=== PATIENT | male | born 1955 | race Asian ===

== ENCOUNTER 2017-10-15 04:18 | Outpatient (CLI) | payer OTHER | END 2017-10-15 04:19 | disposition critical access hospital (66) | LOC: EMS 04:18 | PROVIDERS: ATTEND Surgery | DX: R20.0 Anesthesia of skin (principal) | CPT/HCPCS: A0425; A0427 ==

== ENCOUNTER 2017-10-15 04:34 | Observation (INO) | payer OTHER ==
--- NOTE | 2017-10-15 04:42 | ED Physician Documentation ---
History of Present Illness - Stated complaint Stated Complaint: FACIAL,ARM,LEG NUMBNESS - History obtained from History obtained from: Patient (pt arrived by EMS. he reports that at 0330 this AM he was up (he usually works nights) and he got up to go use the restroom and noticed that his left arm and left leg and the left side of his neck felt numb and tingling. No weakness. no headache. He reports that he did have some vison changes that only lasted a short time. he reports that he took his BP at home and the SBP was in the 230's and his heart rate was in the 140's. He does not have hx of HTN. He reports that he called 911 and since then the symptoms have impreved.) Review of Systems Constitutional: denies: Fever, Chills Eyes: denies: Decreased vision, Photophobia Nose: denies: Rhinorrhea / runny nose, Epistaxis, Sinus pressure / pain Throat: denies: Sore throat Cardiac: denies: Chest pain / pressure, Palpitations Respiratory: denies: Dyspnea, Cough GI: denies: Abdominal Pain, Nausea, Vomiting, Constipation, Diarrhea : denies: Dysuria, Frequency Skin: denies: Rash, Lesions Musculoskeletal: denies: Neck pain, Back pain, Joint swelling, Pain with weight bearing Neurologic: reports: Numbness. denies: Generalized weakness, Focal weakness, Difficulty speaking, Near syncope, Syncope, Seizure, Altered mental status, Headache, Head injury, LOC PD PAST MEDICAL HISTORY - Past Medical History Past Medical History: Yes Cardiovascular: Hypertension, Other (BPH) Respiratory: None - Past Surgical History Past Surgical History: No - Present Medications Home Medications: Ambulatory Orders Medication Instructions Recorded Confirmed No Known Home Medications [No 07/06/14 07/06/14 Known Home Medications] - Allergies Allergies/Adverse Reactions: Allergies Allergy/AdvReac Type Severity Reaction Status Date / Time No Known Drug Allergies Allergy Verified 07/06/14 00:55 - Social History Does the pt smoke?: No Smoking Status: Never smoker Does the pt drink ETOH?: No Does the pt have substance abuse?: No - Immunizations Immunizations are current?: Yes - POLST Patient has POLST: No PD ED PE NORMAL - Vitals Vital signs reviewed: Yes - General General: Alert and oriented X 3, No acute distress, Well developed/nourished - HEENT HEENT: Atraumatic, PERRL, Ears normal, Moist mucous membranes, Pharynx benign - Cardiac Cardiac: RRR, No murmur - Respiratory Respiratory: No respiratory distress, Clear bilaterally - Abdomen Abdomen: Soft, Non tender, Non distended - Back Back: No CVA TTP - Derm Derm: Normal color, Warm and dry, No rash - Extremities Extremities: No deformity, No tenderness to palpate, No calf tenderness / cord - Neuro Eye Opening: Spontaneous Motor: Obeys Commands Verbal: Oriented GCS Score: 15 - Psych Psych: Normal mood, Normal affect PD ED PE EXPANDED - Neuro Neuro: Alert and Oriented X 3, Normal motor, Normal Speech, CNII-XII intact, PERRL, Cerebellar nl, Normal gait, Normal finger nose, Normal speech. No: Confused, Disoriented, Normal Sensation (decreased sensation intact to the left UE and left LE and to the left side of the neck to light touch. ), Weakness, Nystagmus, Aphasia, Dysarthria Results - Vitals Vitals: Vital Signs - 24 hr 10/15/17 10/15/17 04:39 06:05 Temperature 37 C Heart Rate 103 H 68 Respiratory 18 13 Rate Blood Pressure 172/125 H 155/103 H O2 Saturation 96 95 Oxygen O2 Source Room air - EKG (time done) 0455 Rate: Rate (enter#) Rhythm: NSR [place]: Normal Intervals: Normal IN, Prolonged QT (515) QRS: Normal Ischemia: Normal ST segments - Labs Labs: Laboratory Tests 10/15/17 10/15/17 10/15/17 05:30 05:30 05:30 WBC 8.4 RBC 5.31 Hgb 16.0 Hct 47.4 MCV 89.2 MCH 30.1 MCHC 33.7 RDW 14.3 Plt Count 258 MPV 7.7 Neut # 6.1 Lymph # 1.5 [place] # 0.6 Eos # 0.1 Baso # 0.0 Absolute Nucleated RBC 0.01 Nucleated RBC % 0.1 PT 10.8 INR 1.0 APTT 29.7 Sodium 141 Potassium 3.0 L Chloride 105 Carbon Dioxide 26 Anion Gap 10.0 BUN 15 Creatinine 1.0 Estimated GFR (MDRD) 75 L Glucose 110 H Calcium 8.9 Total Bilirubin 0.6 AST 42 ALT 67 H Alkaline Phosphatase 111 Total Protein 7.1 Albumin 4.2 Globulin 2.9 Albumin/Globulin Ratio 1.4 Lipase 32 - Rads (name of study) Head CT Radiology: Final report received (No acute abnormality ), EMP read contemporaneously PD MEDICAL DECISION MAKING - ED course Complexity details: reviewed results, re-evaluated patient, considered differential, d/w patient, d/w family, d/w devops consultant ED course: pt with BP in the 150's SBP and HR in the 90's. has a great improvement in his symptoms. normal head CT. Pt given ASA in the ER. no indication for TPA secondary to the improving symptoms. Discussed case with the pt and admitting provider. will admit for further work up of a TIA. Departure - Departure Disposition: ED Place in Observation Clinical Impression: TIA (transient ischemic attack), Hypotension Condition: Stable
--- NOTE | 2017-10-15 05:10 | CT Report ---
EXAM: CT HEAD EXAM DATE: 10/15/2017 04:53 AM. CLINICAL HISTORY: Left sided weakness. COMPARISON: None. TECHNIQUE: Multiaxial CT images were obtained from the foramen magnum to the vertex. Reformats: Coron al. IV contrast: None. In accordance with CT protocol optimization, one or more of the following dose reduction techniques w ere utilized for this exam: automated exposure control, adjustment of mA and/or KV based on patient s ize, or use of iterative reconstructive technique. FINDINGS: Parenchyma: No intraparenchymal hemorrhage. No evidence of mass, midline shift, or CT findings of inf arction. Triplett-white differentiation is distinct. Moderately extensive nonspecific white matter hypode nsity, somewhat prominent for age. Extraaxial Spaces: Normal for age. No subdural or epidural collections identified. Ventricles: Normal in size and position. Sinuses and Orbits: Imaged paranasal sinuses, orbits, and mastoids show no significant abnormality. Bones: No evidence of fracture or calvarial defect. Other: None. IMPRESSION: No acute or focal intracranial abnormality. [facility] Referring Provider Line: [phone] SITE ID: [id number]
[2017-10-15 05:39] LABS: BASOPHILS % (AUTO) 0.4 %; EOSINOPHILS # (AUTO) 0.1 10^3/uL (0.0-0.7); EOSINOPHILS % (AUTO) 1.7 %; LYMPHOCYTES # (AUTO) 1.5 10^3/uL (1.5-3.5); MEAN CORPUSCULAR HEMOGLOBIN 30.1 pg (27.0-31.0); MEAN CORPUSCULAR HGB CONC 33.7 g/dL (32.0-36.0); MEAN CORPUSCULAR VOLUME 89.2 fL (80.0-94.0); MEAN PLATELET VOLUME 7.7 fL (7.4-11.4); MONOCYTES # (AUTO) 0.6 10^3/uL (0.0-1.0); MONOCYTES % (AUTO) 7.4 %; NEUTROPHILS # (AUTO) 6.1 10^3/uL (1.5-6.6); NEUTROPHILS % (AUTO) 72.5 %; PLT - PLATELET COUNT 258 10^3/uL (130-450); RED BLOOD COUNT 5.31 10^6/uL (4.70-6.10); RED CELL DISTRIBUTION WIDTH 14.3 % (12.0-15.0); WHITE BLOOD COUNT 8.4 x10^3/uL (4.8-10.8)
[2017-10-15 05:42] LABS: PT - PROTHROMBIN TIME 10.8 secs (9.9-12.6)
[2017-10-15 05:50] LABS: ALBUMIN 4.2 g/dL (3.2-5.5); ALBUMIN/GLOBULIN RATIO 1.4 (1.0-2.2); BILIRUBIN,TOTAL 0.6 mg/dL (0.2-1.0); CALCIUM 8.9 mg/dL (8.5-10.3); TOTAL PROTEIN 7.1 g/dL (6.7-8.2)
[2017-10-15] MEDS ORDERED: ASPIRIN 325 MG TABLET PO STA (06:15)
[2017-10-15] MEDS ORDERED: ACETAMINOPHEN 325 MG TABLET PO PRN (06:21)
[2017-10-15] MEDS ORDERED: HYDROcod/ACETAM 5/325 MG TABLET PO PRN (06:21)
[2017-10-15] MEDS ORDERED: SODIUM CHLORIDE FLUSH 0.9% 10 ML SYRINGE IVP PRN (06:21)
[2017-10-15] MEDS ORDERED: LABETALOL 20 MG/4 ML SYRINGE IVP PRN (06:24)
[2017-10-15] MEDS ORDERED: IOPAMIDOL-300 100 ML VIAL ONE ×2 (06:56→07:47)
[2017-10-15] MEDS ORDERED: IOPAMIDOL-300 100 ML VIAL IVP ONE (08:09)
[2017-10-15] MEDS ORDERED: POTASSIUM CHLORIDE 20 MEQ TABLET PO SCH (09:00)
[2017-10-15] MEDS ORDERED: METOPROLOL 5 MG/5 ML VIAL IVP ONE (09:17)
--- NOTE | 2017-10-15 09:24 | PROVIDER PROGRESS NOTE ---
Subjective - Prog Note Date Prog Note Date: 10/15/17 Prog Note Time: 09:21 - Subjective Pt reports feeling: No change Subjective: Tina complains of incontinence and mild facial numbness that comes and goes. Objective - Vital Signs/Intake & Output Reviewed Vital Signs: Yes Vital Signs: Vital Signs x48h Temp Pulse Pulse Resp BP BP Pulse Ox 10/15/17 08:00 36.9 C 77 19 176/111 H 100 10/15/17 07:14 36.9 C 98 18 196/101 H 100 10/15/17 06:42 91 20 186/111 H 96 Intake & Output: Intake & Output 10/12/17 10/13/17 10/14/17 10/15/17 23:59 23:59 23:59 23:59 Intake Total 360 Balance 360 - Objective General Appearance: positive: No acute distress, Alert, Anxious Eyes Bilateral: positive: Normal inspection, PERRL ENT: positive: ENT inspection nml, Pharynx nml, No signs of dehydration Neck: positive: Nml inspection, Thyroid nml, No JVD, Trachea midline Respiratory: positive: Chest non-tender, No respiratory distress, Other ( crackles, bilateral lobes.) Cardiovascular: positive: Regular rate & rhythm, No gallop, Tachycardia, Systolic murmur Peripheral Pulses: 2+ Radial (R), 2+ Radial (L) Abdomen: positive: Non-tender, No organomegaly, Nml bowel sounds, No distention Back: positive: Nml inspection Skin: positive: Color nml, No rash, Warm, Dry Extremities: positive: Non-tender, Full ROM, Nml appearance, No pedal edema Neurologic/Psychiatric: positive: Oriented x3, CN's nml (2-12), Motor nml, Sensation nml, Depressed mood/affect Reflexes: Bicep (R): 4+, Bicep (L): 4+ - Lab Results Fish Bones: 10/15/17 05:30 10/15/17 05:30 - Diagnostic Imaging Diagnostic Imaging Results: positive: Prelim report reviewed Diagnostic Imaging Comments: FINDINGS: CT ANGIOGRAM HEAD: RIGHT: Internal Carotid artery: No evidence of dissection. No evidence of aneurysm along the intracranial ICA. Anterior Cerebral Artery: Patent without significant stenosis, aneurysm, or vascular malformation. 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 A2 and distal branches are primarily supplied from the left A1 segment through a patent A-COM. Middle Cerebral Artery: Patent without significant stenosis, aneurysm, or vascular malformation. Posterior Cerebral Artery: Moderate stenosis is seen in the P2 segment. Proximal and distal to this the WINDOW MACHINE OPERATOR is patent and unremarkable. Posterior Communicating Artery: Not visualized. Vertebral Artery: Patent without significant stenosis. No evidence of dissection. Small in caliber. The PICA is unremarkable. LEFT: Internal Carotid artery: No evidence of dissection. No evidence of aneurysm along the intracranial ICA. Anterior Cerebral Artery: Patent without significant stenosis, aneurysm, or vascular malformation. The A1 segment is dominant. Middle Cerebral Artery: Patent without significant stenosis, aneurysm, or vascular malformation. Posterior Cerebral Artery: Patent without significant stenosis, aneurysm, or vascular malformation. Posterior Communicating Artery: Not visualized. Vertebral Artery: Patent without significant stenosis. No evidence of dissection. Dominant. CENTRAL: Anterior Communicating Artery: Patent. No aneurysm. Basilar Artery: Patent without significant stenosis. No aneurysm. DURAL VENOUS SINUSES AND MAJOR CENTRAL VEINS: Not well opacified secondary to timing of study during early arterial phase of contrast administration. IMPRESSION: CTA Head: 1. Moderate stenosis in the P2 segment of the right WINDOW MACHINE OPERATOR. 2. Otherwise unremarkable CT angiogram of the intracranial circulation. No aneurysm. 3. 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 Assessment/Plan - Problem List (1) Acute left-sided weakness Impression: Patient presented to the ED after unresolved left-sided weakness that has been occurring for at least the past few weeks. Plan: TIA work up including, CTA head, MRI head, telemetry monitoring, and echocardiogram due to abnormal EKGs and
--- NOTE | 2017-10-15 10:03 | CT Preliminary Report ---
Exam: CT NECK ANGIO IMPRESSION: 1. There is subtle vertical lucency seen through the mid aspect of the right ICA. This begins at its origin through the bulbar region into the proximal cervical segment. Indistinctness of the vessel wal l is seen suggesting a motion artifact. This internal lucency may be secondary to artifact, although a dissection flap is not excludable. This could be further evaluated with carotid Doppler ultrasound. 2. The left carotid extracranial circulation and bilateral vertebral artery circulation in the neck i s patent and unremarkable. Critical result: Findings are discussed with referring treating nurse practitioner on 10/15/2017 at 1 000 hrs. [facility] SITE ID: [id number]
--- NOTE | 2017-10-15 10:08 | CT Preliminary Report ---
Exam: CT HEAD ANGIO IMPRESSION: CTA Head: 1. Moderate stenosis in the P2 segment of the right SPARE FIXER. 2. Otherwise unremarkable CT angiogram of the intracranial circulation. No aneurysm. 3. 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 [facility] SITE ID: [id number]
--- NOTE | 2017-10-15 10:15 | CT Report ---
EXAM: CT ANGIOGRAM NECK EXAM DATE: 10/15/2017 08:08 AM. CLINICAL HISTORY: Left body transient ischemic attack. COMPARISON: CT scan and CT angiogram of the head 10/15/2017. TECHNIQUE: Routine axial helical imaging was performed from the skull base through the aortic arch. I V Contrast: 80 mL Isovue 300. Reconstructions: Routine multiplanar 3D MIP reconstructions. Evaluation of arterial stenosis is based on a NASCET method of measurement. In accordance with CT protocol optimization, one or more of the following dose reduction techniques w ere utilized for this exam: automated exposure control, adjustment of mA and/or KV based on patient s ize, or use of iterative reconstructive technique. FINDINGS: The partially visualized aortic arch is unremarkable. Normal three-vessel branching is seen. The grea t vessels off the arch are patent and unremarkable. Right Carotid: (Note mild motion artifact distorts the carotid bifurcation as well as the proximal an d mid cervical ICA/ECA. No similar involvement is seen in the left carotid system. This may be second ciara to pulsation.) The CCA is patent and unremarkable. There is a subtle sagittally-oriented vertical lucency seen through the ICA. This involves the origin, carotid bulb, as well as proximal cervical s egment. This is at site of greatest motion artifact. It is unclear whether this is secondary to motio n artifact or a vertically-oriented dissection flap. No pseudoaneurysm. No significant stenosis. Note the right ICA is smaller in caliber than the left. The ECA is patent and unremarkable. Left Carotid: The common carotid, internal carotid, and external carotid arteries are widely patent. No dissection, significant atherosclerotic plaque, or calcification identified. Vertebrals: The vertebrobasilar system shows no stenoses. Note the left vertebral artery is larger in caliber than the right. Intracranial Circulation: (See report of CT angiogram of the head performed at the same time). Other: The visualized lung apices are clear. Muscle and fascial planes of the neck are unremarkable. Spondylosis is noted in the mid and lower cervical spine. Degenerative disk and uncovertebral change is seen at C4-C5 and C5-C6. Mild to moderate foraminal stenosis. IMPRESSION: 1. There is subtle vertical lucency seen through the mid aspect of the right ICA. This begins at its origin through the bulbar region into the proximal cervical segment. Indistinctness of the vessel wal l is seen suggesting motion artifact. This internal lucency may be secondary to artifact, although a dissection flap is not excludable. This could be further evaluated with carotid Doppler ultrasound. 2. The left carotid extracranial circulation and bilateral vertebral artery circulation in the neck i s patent and unremarkable. Critical result: Findings are discussed with referring treating nurse practitioner on 10/15/2017 at 1 000 hrs. [facility] Referring Provider Line: [phone] SITE ID: [id number]
--- NOTE | 2017-10-15 10:15 | CT Report ---
EXAM: CT ANGIOGRAM HEAD. EXAM DATE: 10/15/2017 08:04 AM CLINICAL HISTORY: Left body TIA. COMPARISON: CT scan of the head without contrast 10/15/2017. CT angiogram of the neck 10/15/2017. TECHNIQUE: 1. CT Angiogram: Using a multidetector scanner, high-resolution axial images were acquired from the s kull base through vertex following rapid infusion of intravenous contrast. Reformats: Multiplanar MIP reformats were reconstructed. Nascet criteria used for stenosis measurement. IV Contrast: 80 cc Isovue 300. In accordance with CT protocol optimization, one or more of the following dose reduction techniques w ere utilized for this exam: automated exposure control, adjustment of mA and/or KV based on patient s ize, or use of iterative reconstructive technique. FINDINGS: CT ANGIOGRAM HEAD: RIGHT: Internal Carotid artery: No evidence of dissection. No evidence of aneurysm along the intracranial IC A. Anterior Cerebral Artery: Patent without significant stenosis, aneurysm, or vascular malformation. No te is made of moderate hypoplasia of the A1 segment. A2 and distal branches are primarily supplied fr om the left A1 segment through a patent A-COM. Middle Cerebral Artery: Patent without significant stenosis, aneurysm, or vascular malformation. Posterior Cerebral Artery: Moderate stenosis is seen in the P2 segment. Proximal and distal to this t he WATER MANGLE TENDER is patent and unremarkable. Posterior Communicating Artery: Not visualized. Vertebral Artery: Patent without significant stenosis. No evidence of dissection. Small in caliber. T he PICA is unremarkable. LEFT: Internal Carotid artery: No evidence of dissection. No evidence of aneurysm along the intracranial IC A. Anterior Cerebral Artery: Patent without significant stenosis, aneurysm, or vascular malformation. Th e A1 segment is dominant. Middle Cerebral Artery: Patent without significant stenosis, aneurysm, or vascular malformation. Posterior Cerebral Artery: Patent without significant stenosis, aneurysm, or vascular malformation. Posterior Communicating Artery: Not visualized. Vertebral Artery: Patent without significant stenosis. No evidence of dissection. Dominant. CENTRAL: Anterior Communicating Artery: Patent. No aneurysm. Basilar Artery: Patent without significant stenosis. No aneurysm. DURAL VENOUS SINUSES AND MAJOR CENTRAL VEINS: Not well opacified secondary to timing of study during early arterial phase of contrast administration. IMPRESSION: CTA Head: 1. Moderate stenosis in the P2 segment of the right WATER MANGLE TENDER. 2. Otherwise unremarkable CT angiogram of the intracranial circulation. No aneurysm. 3. 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 [facility] Referring Provider Line: [phone] SITE ID: [id number]
[2017-10-15] MEDS: ATORVASTATIN 40 MG TABLET PO SCH ×2 (10:19→21:06)
[2017-10-15] MEDS: POLYETHYLENE GLYCOL 3350 17 GM PACKET PO SCH (10:27)
[2017-10-15] MEDS ORDERED: ALPRAZolam 0.25 MG TABLET PO SCH (10:30)
--- NOTE | 2017-10-15 10:44 | HISTORY & PHYSICAL EXAMINATION ---
Chief Complaint - Chief Complaint Chief Complaint: left facial numbness. History of Present Illness - Admitted From Admitted From:: ED - History Obtained From Records Reviewed: yes History obtained from: patient, chart review Exam Limitations: none - History of Present Illness HPI Comment/Other: Tina Wilson is a well-appearing 62-year old male with a past medical history of hypertension, BPH and hyperlipidemia, who presented to the ED after he got up to go use the restroom and noticed that his left arm, left leg, left neck and left side of face felt numb and tingling. No weakness or headaches. He reports that he did have some vision changes that only lasted a couple seconds. Prior to this event, a few weeks ago he admits to left sided weakness , facial numbness, palpitations, and increased anxiety. Patient woke up with left facial numbness only to his face that was different than other times. 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 He contributes these presenting symptoms as relating to stress at work. He will be admitted to observation for a TIA work up. History - Past Medical History Cardiovascular: reports: Hypertension, Other Respiratory: reports: None Neuro: reports: None Endocrine/Autoimmune: reports: None GI: reports: None : reports: Benign prostate hypertrophy, Incontinence, Frequency HEENT: reports: None Psych: reports: None Musculoskeletal: reports: None Derm: reports: None - Past Surgical History HEENT: reports: Cataracts - POLST Patient has POLST: No Meds/Allgy - Home Medications Home Medications: Ambulatory Orders Medication Instructions Recorded Confirmed Saw Sapello 1 cap PO DAILY 10/15/17 10/15/17 - Allergies Allergies/Adverse Reactions: Allergies Allergy/AdvReac Type Severity Reaction Status Date / Time No Known Drug Allergies Allergy Verified 07/06/14 00:55 Review of Systems - Constitutional Constitutional: reports: Weakness - Eyes Eyes: reports: Blurred vision, Spots in vision, Corrective lenses, Other ( seeing stars.) - Cardiovascular Cariovascular: reports: Irregular heart rate, Palpitations, Lightheadedness, Syncope, Decr. exercise tolerance (noticed while playing volleyball.) - Genitourinary Genitourinary: reports: Dysuria, Urgency, Incontinence, Nocturia, Other ( elevated PSA, BPH history.) - Integumentary Integumentary: reports: Dryness - Neurological Neurological: reports: Dizziness, Numbness - Psychiatric Psychiatric: reports: Anxiety - All Other Systems All Other Systems: reports: Reviewed and negative Exam - Vital Signs Reviewed Vital Signs: Yes Vital Signs: Vital Signs x48h Temp Pulse Pulse Resp BP BP Pulse Ox 10/15/17 10:38 74 170/93 H 10/15/17 10:33 83 162/117 H 10/15/17 10:20 181/120 H 10/15/17 08:00 36.9 C 77 19 176/111 H 100 10/15/17 07:14 36.9 C 98 18 196/101 H 100 10/15/17 06:42 91 20 186/111 H 96 - Physical Exam General Appearance: positive: No acute distress, Anxious Eyes Bilateral: positive: Normal inspection, PERRL ENT: positive: ENT inspection nml, Pharynx nml, No signs of dehydration Neck: positive: Nml inspection, Thyroid nml, No JVD, Trachea midline Respiratory: positive: Chest non-tender, No respiratory distress, Other ( crackles in lower lobes.) Cardiovascular: positive: No gallop, Irregularly irregular, Tachycardia, Systolic murmur Peripheral Pulses: positive: 2+ Abdomen: positive: Non-tender, No organomegaly, Nml bowel sounds, No distention Back: positive: Nml inspection Skin: positive: Color nml, No rash, Warm, Dry Extremities: positive: Non-tender, Full ROM, Nml appearance, No pedal edema Neurologic/Psychiatric: positive: Oriented x3, CN's nml (2-12), Motor nml, Sensation nml, Depressed mood/affect Reflexes: Bicep (R): 3+ (equal), Bicep (L): 3+ Conclusion/Plan - Problem List (1) Acute left-sided weakness Conclusion/Plan: Patient presented to the ED after he got up to go use the restroom and noticed that his left arm, left leg, left neck and left side of face felt numb and tingling. No weakness or headaches. He reports that he did have some vision changes that only lasted a couple seconds. Prior to this event, a few weeks ago he admits to left sided weakness, facial numbness, palpitations, and increased anxiety. Patient woke up with left facial numbness only to his face that was different than other times. Plan: Monitor and continue work up for TIA. (2) TIA (transient ischemic attack) Conclusion/Plan: Worriesome presentation with resolved symptoms remain suspicious for TIA. CT head that was completed in ED was negative for intracranial abnormality. Plan: Continue work up with MRI later today. (3) Hypertension Conclusion/Plan: According to ED notes patient's blood pressure was as high as 230's at home per patient original report. Patient states that he has been taking his blood pressure at work and notes blood pressures in the 170's systolic at times. Patient states that he has a history of HTN, and decided not to stay on his meds. Plan: Start antihypertensives and monitor blood pressure. Echocardiogram ordered, telemetry monitoring. (4) BPH (benign prostatic hyperplasia) Conclusion/Plan: Patient reports that he has been diagnosed with this and takes saw Managed by Qo OTC for this. Lately, he has been incontinent and had increased frequency, nocturia , but denies hematuria. Plan: UA with cx ordered. Consider medical management. (5) Dysuria Conclusion/Plan: This is likely a symptom of BPH, but concerning as it is coupled with incontinence that is new in the past few weeks. Plan: UA and culture. Provide urinal. Code status: FULL DVT prophylaxis with SCDs, ASA and enoxaparin. - Lab Results Lab results reviewed: Yes Fish Bones: 10/15/17 05:30 10/15/17 05:30 - Diagnostic Imaging Results Diagnostic Imaging Results: positive: Prelim report reviewed, Final report reviewed, Discussed with radiologist Diagnostic Imaging Results Comments: Head CT: (on admission) FINDINGS: Parenchyma: No intraparenchymal hemorrhage. No evidence of mass, midline shift, or CT findings of infarction. Triplett-white differentiation is distinct. Moderately extensive nonspecific white matter hypodensity, somewhat prominent for age. Extraaxial Spaces: Normal for age. No subdural or epidural collections identified. Ventricles: Normal in size and position. Sinuses and Orbits: Imaged paranasal sinuses, orbits, and mastoids show no significant abnormality. Bones: No evidence of fracture or calvarial defect. Other: None. IMPRESSION: No acute or focal intracranial abnormality - EKG Results EKG Interpreted Independently: Yes EKG Comparison: No prior EKG Core Measures - Anticipated LOS I expect patient to be DC'd or transferred within 96 hours.: Yes - DVT/VTE - Prophylaxis VTE/DVT Device ordered at admit?: Yes VTE/DVT Prophylaxis med ordered at admit?: Yes - Stroke - Rehab Assessment Rehab services assessment to be ordered?: No Not Ordered - Medical Reason: Contraindicated - AMI - Statin at Admit Aspirin Prescribed on Admit: Yes
[2017-10-15] MEDS: METOPROLOL SUCCINATE 25 MG TABLET PO SCH ×2 (12:25→21:02)
[2017-10-15] MEDS: PRAZOSIN 1 MG CAPSULE PO SCH ×2 (12:25→21:02)
[2017-10-15] MEDS: SODIUM CHLORIDE FLUSH 0.9% 10 ML SYRINGE IVP SCH ×2 (12:25→16:42)
[2017-10-15] MEDS ORDERED: LISINOPRIL 5 MG TABLET PO SCH (13:00)
[2017-10-15] MEDS ORDERED: LORazepam 2 MG/ML VIAL IVP ONE (14:44)
--- NOTE | 2017-10-15 16:20 | MRI Report ---
EXAM: MRI BRAIN WITHOUT CONTRAST EXAM DATE: 10/15/2017 03:59 PM. CLINICAL HISTORY: History of TIA. Left-sided symptoms. COMPARISON: Prior CT angiogram head and neck performed earlier today 10/15/2017 at 0722 hours. TECHNIQUE: Multiplanar, multisequence T1-weighted and fluid-sensitive MR sequences of the brain were performed. Sequences optimized for routine evaluation. Other: None. IV Contrast: None. Findings: Relevant images are indicated (image number, series number). There is patient motion artifact. 6.8 mm diffusion restriction right thalamus, corresponding low signal ADC, increased signal seen on a xial FLAIR consistent with subacute ischemic stroke. No hemosiderin deposition present in the brain. There is no hemorrhage, mass or midline shift. There is no cortical atrophy and moderate dense scatte red periventricular, peritrigonal white matter disease present. The pituitary, midbrain, cranial cerv ical junction, limited evaluation upper cervical cord negative Impressions: Study partly degraded by motion artifact. 1. Right thalamic 6.8 mm subacute ischemic stroke. No hemorrhage or mass effect. 2. Moderate dense scattered white matter disease most likely related to chronic small vessel ischemic disease, correlate with patient risk factors. 3. Remaining brain, orbits unremarkable. Critical result: Findings discussed immediately with nurse practitioner Maira Forman by phone on 12/08/2016 at 1618 hours [facility] Referring Provider Line: [phone] SITE ID: [id number]
[2017-10-15] MEDS ORDERED: SODIUM CHLORIDE 0.9% 500 ML IV ONE (16:31)
[2017-10-16] MEDS: SODIUM CHLORIDE FLUSH 0.9% 10 ML SYRINGE IVP SCH (05:11)
[2017-10-16 05:21] LABS: BASOPHILS % (AUTO) 0.5 %; EOSINOPHILS # (AUTO) 0.2 10^3/uL (0.0-0.7); EOSINOPHILS % (AUTO) 2.2 %; HGB - HEMOGLOBIN 15.2 g/dL (14.0-18.0); LYMPHOCYTES # (AUTO) 1.9 10^3/uL (1.5-3.5); LYMPHOCYTES % (AUTO) 23.4 %; MEAN CORPUSCULAR HEMOGLOBIN 29.9 pg (27.0-31.0); MEAN CORPUSCULAR HGB CONC 33.4 g/dL (32.0-36.0); MEAN CORPUSCULAR VOLUME 89.5 fL (80.0-94.0); MEAN PLATELET VOLUME 7.7 fL (7.4-11.4); MONOCYTES # (AUTO) 0.8 10^3/uL (0.0-1.0); MONOCYTES % (AUTO) 9.3 %; NEUTROPHILS # (AUTO) 5.2 10^3/uL (1.5-6.6); NEUTROPHILS % (AUTO) 64.6 %; PLT - PLATELET COUNT 249 10^3/uL (130-450); RED BLOOD COUNT 5.08 10^6/uL (4.70-6.10); RED CELL DISTRIBUTION WIDTH 14.2 % (12.0-15.0); WHITE BLOOD COUNT 8.1 x10^3/uL (4.8-10.8)
[2017-10-16 05:39] LABS: ALBUMIN 3.7 g/dL (3.2-5.5); ALBUMIN/GLOBULIN RATIO 1.3 (1.0-2.2); ALKALINE PHOSPHATASE 99 IU/L (42-121); ALT ALANINE AMINOTRANSFERASE 64 IU/L (10-60); AST ASPARTATE AMINOTRANSFERASE 37 IU/L (10-42); BILIRUBIN,TOTAL 0.9 mg/dL (0.2-1.0); BUN - BLOOD UREA NITROGEN 19 mg/dL (6-20); CALCIUM 8.9 mg/dL (8.5-10.3); CARBON DIOXIDE - CO2 25 mmol/L (21-32); CHLORIDE 104 mmol/L (101-111); CHOL/HDL RATIO 5.6 (<5.0); CHOLESTEROL 174 mg/dL; CREATININE 1.1 mg/dL (0.6-1.2); GFR - MDRD 67 (>89); GLUCOSE 121 mg/dL (70-100); HDL CHOLESTEROL 31 mg/dL; LDL CHOLESTEROL,CALCULATED 87 mg/dL; LDL/HDL RATIO 2.8 (<3.6); SODIUM 139 mmol/L (135-145); TOTAL PROTEIN 6.5 g/dL (6.7-8.2); VLDL CHOLESTEROL 56 mg/dL
[2017-10-16 05:41] LABS: BILIRUBIN,URINE NEGATIVE (NEGATIVE); GLUCOSE, URINE (UA) NEGATIVE (NEGATIVE); KETONES,URINE (UA) NEGATIVE (NEGATIVE); LEUKOCYTE ESTERASE, URINE NEGATIVE (NEGATIVE); NITRITE,URINE NEGATIVE (NEGATIVE); OCCULT BLOOD,URINE TRACE-LYSE (NEGATIVE); PROTEIN,URINE 100 mg/dL (NEGATIVE); UROBILINOGEN,URINE 0.2 (NORMAL) E.U./dL (NORMAL)
[2017-10-16 05:52] LABS: CLARITY,URINE CLEAR (CLEAR)
[2017-10-16 05:53] LABS: BACTERIA,URINE None Seen /HPF (None Seen); RBC,URINE 0-5 /HPF (0-5); SQUAMOUS EPITHELIAL CELL,UR NONE SEEN (<= Few)
[2017-10-16 05:54] LABS: CRYSTALS,URINE 6-10 Calcium Oxalate /LPF
[2017-10-16 06:01] LABS: HB2 TOTAL 16.5 g/dL; HEMOGLOBIN A1C 0.67 g/dL; HEMOGLOBIN A1C % 5.9 % (4.6-6.2)
[2017-10-16 06:11] LABS: PSA FREE 0.95 ng/mL (0.16-2.81)
[2017-10-16 06:12] LABS: PSA TOTAL 5.25 ng/mL (0.000-2.000)
[2017-10-16] MEDS ORDERED: POTASSIUM CHLORIDE 20 MEQ TABLET PO ONE (07:10)
--- NOTE | 2017-10-16 07:31 | DISCHARGE SUMMARY ---
Discharge Summary Discharge Date: 10/16/17 Discharging Provider: ABEL Johnson Code Status: Attempt Resuscitation Condition at Discharge: Good Discharge Disposition: 01 Home, Self Care - DIAGNOSES Admission Diagnoses: Acute left-sided weakness (M62.89) TIA (transient ischemic attack) (G45.9) Hypertension (I10) BPH (benign prostatic hyperplasia) (N40.0) Dysuria (R30.0) Discharge Diagnoses with Status of Each Condition: CVA (cerebral vascular accident) (I63.9) -new diagnosis on this hospital stay, now chronic with only one physical disability with left eyebrow slight droop. Acute left-sided weakness (M62.89)- resolved, although patient admits to residual left arm and thigh residual numbness and tingling. Facial numbness "comes and goes". TIA (transient ischemic attack) (G45.9) -ruled out, resolved. Hypertension (I10)-chronic, controlled. Now medically managed. BPH (benign prostatic hyperplasia) (N40.0) -chronic, prazosin prescribed for both urinary problems and blood pressure. Dysuria (R30.0)-ongoing, hope to control with medications. - HPI History of Present Illness: Tina Wilson is a well-appearing 62-year old male with a past medical history of hypertension, BPH and hyperlipidemia, who presented to the ED after he got up to go use the restroom and noticed that his left arm, left leg, left neck and left side of face felt numb and tingling. No weakness or headaches. He reports that he did have some vision changes that only lasted a couple seconds. Prior to this event, a few weeks ago he admits to left sided weakness , facial numbness, palpitations, and increased anxiety. Patient woke up with left facial numbness only to his face that was different than other times. 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 He contributes these presenting symptoms as relating to stress at work. He will be admitted to observation for a TIA work up. - HOSPITAL COURSE Hospital Course: The following issues/diagnoses were addressed in this hospital stay: Acute left-sided weakness: Patient presented to the ED after he got up to go use the restroom and noticed that his left arm, left leg, left neck and left side of face felt numb and tingling. No weakness or headaches. He reports that he did have some vision changes that only lasted a couple seconds. Prior to this event, a few weeks ago he admits to left sided weakness, facial numbness , palpitations, and increased anxiety. Patient woke up with left facial numbness only to his face that was different than other times, and this time with visual disturbances. Patient was monitored overnight for continued work up for TIA/CVA. TIA/CVA: Worrisome presentation with partially resolved symptoms remained suspicious for TIA. CT head that was completed in ED was negative for intracranial abnormality. MRI revealed a ischemic stroke. Care was taken to prevent hypotension and patient was placed in trendelenberg to prevent decreased intracranial pressure from becoming too low. Patient received IV lorazepam electronic device monitor for MRI, and slept immediately following the MRI until the next AM. was present at the time of explanation of MRI results, and when re-visiting the patient the next AM, was again present. Patient was written a work excuse note, until he sees PCP, but encouraged to see a neurologist if his symptoms are troublesome or he feels he cannot perform his job duties. Hypertension: According to ED notes patient's blood pressure was as high as 230 's at home per patient original report. Patient states that he has been taking his blood pressure at work and notes blood pressures in the 170's systolic at times. Patient states that he has a history of HTN, and decided not to stay on his meds. Antihypertensives were initiated, and monitored. Given hypertension and murmur found on exam, Echocardiogram ordered, with continued telemetry monitoring. The echocardiogram revealed hypertensive related heart failure that may improve with blood pressure control and maintaining a physical state. BPH: Patient reports that he has been diagnosed with this and takes saw [facility]. Lately, he has been incontinent and had increased frequency, nocturia, but denies hematuria. A PSA was taken per patient request and revealed an elevated PSA of 5.250, free PSA of 0.950, % free that was low at 18. UA with culture was negative. Patient given lab values and encouraged to follow up with urologist. Patient was prescribed prazosin for urinary incontinence, urgency and frequency and for blood pressure control. Dysuria: This is likely a symptom of BPH, but concerning as it is coupled with incontinence that is new in the past few weeks. Disposition: Patient was noted to have an elevated triglyceride level of 282, so patient prescribed lopid. Total cholesterol was 174, LDL 87, VLDL 56, and HDL was 31. Patient was prescribed a low dose of 10mg statin due to the addition of lopid and the risk of liver damage. Patient had an official PT evaluation, which he passed and was not found to have any residual physical effects. He was told to follow up with PCP, rest at home for the first few days. Patient was transferred via private car home with in stable condition. was present for the entire discharge process. - ALLERGIES Allergies/Adverse Reactions: Allergies Allergy/AdvReac Type Severity Reaction Status Date / Time No Known Drug Allergies Allergy Verified 07/06/14 00:55 - MEDICATIONS Home Medications: Ambulatory Orders Medication Instructions Recorded Confirmed Saw Rice 1 cap PO DAILY 10/15/17 10/15/17 Aspirin [Alireza] 325 mg PO DAILYWM #30 tablet 10/16/17 Atorvastatin [Lipitor] 10 mg PO DAILY #30 tablet 10/16/17 Gemfibrozil [Lopid] 600 mg PO BIDAC #60 tablet 10/16/17 Losartan [Cozaar] 25 mg PO DAILY #30 tablet 10/16/17 Prazosin [Minipress] 1 mg PO QPM #30 capsule 10/16/17 - PHYSICAL EXAM AT DISCHARGE General Appearance: positive: No acute distress, Alert, Anxious (baseline nervousness.) Eyes Bilateral: positive: Normal inspection, PERRL, No scleral icterus, Other ( mild left eyebrow droop, new this AM. Not appreciated upon admission.) ENT: positive: ENT inspection nml, No signs of dehydration, Other (Patient can move both ears bilaterally) Neck: positive: Nml inspection, Thyroid nml, No JVD, Trachea midline Respiratory: positive: Chest non-tender, No respiratory distress, Breath sounds nml Cardiovascular: positive: No gallop, Irregularly irregular, Systolic murmur Peripheral Pulses: positive: 2+ Abdomen: positive: Non-tender, No organomegaly, Nml bowel sounds, No distention Back: positive: Nml inspection Skin: positive: Color nml, No rash, Warm, Dry Extremities: positive: Non-tender, Full ROM, Nml appearance, No pedal edema Neurologic/Psychiatric: positive: Oriented x3, CN's nml (2-12), Motor nml, Sensation nml, Mood/affect nml, Sensory loss (Patient complains of left arm, hand, and some thigh numbness.), Facial droop (very mild left eyebrow droop that was not appreciated on previous exams.), Other Reflexes: Bicep (R): 3+, Bicep (L): 3+ - LABS Result Diagrams: 10/16/17 05:10 10/16/17 05:10 - DIAGNOSTIC IMAGING Diagnostic Imaging Results: Final report reviewed Diagnostic Imaging Results Comments: Head MRI: Findings: Relevant images are indicated (image number, series number) . There is patient motion artifact. 6.8 mm diffusion restriction right thalamus, corresponding low signal ADC, increased signal seen on axial FLAIR consistent with subacute ischemic stroke. No hemosiderin deposition present in the brain. There is no hemorrhage, mass or midline shift. There is no cortical atrophy and moderate dense scattered periventricular, peritrigonal white matter disease present. The pituitary, midbrain, cranial cervical junction, limited evaluation upper cervical cord negative Impressions: Study partly degraded by motion artifact. 1. Right thalamic 6.8 mm subacute ischemic stroke. No hemorrhage or mass effect. 2. Moderate dense scattered white matter disease most likely related to chronic small vessel ischemic disease, correlate with patient risk factors. 3. Remaining brain, orbits unremarkable. Carotid Dopplers: 10/15/17 Normal, no dissection seen. Per written report by reading radiologist. Head CT 10/15/17: FINDINGS: Parenchyma: No intraparenchymal hemorrhage. No evidence of mass, midline shift, or CT findings of infarction. Triplett-white differentiation is distinct. Moderately extensive nonspecific white matter hypodensity, somewhat prominent for age. Extraaxial Spaces: Normal for age. No subdural or epidural collections identified. Ventricles: Normal in size and position. Sinuses and Orbits: Imaged paranasal sinuses, orbits, and mastoids show no significant abnormality. Bones: No evidence of fracture or calvarial defect. Other: None. IMPRESSION: No acute or focal intracranial abnormality. CTA neck 10/15/17: FINDINGS: The partially visualized aortic arch is unremarkable. Normal three-vessel branching is seen. The great vessels off the arch are patent and unremarkable. Right Carotid: (Note mild motion artifact distorts the carotid bifurcation as well as the proximal and mid cervical ICA/ECA. No similar involvement is seen in the left carotid system. This may be secondary to pulsation.) The CCA is patent and unremarkable. There is a subtle sagittally-oriented vertical lucency seen through the ICA. This involves the origin, carotid bulb, as well as proximal cervical segment. This is at site of greatest motion artifact. It is unclear whether this is secondary to motion artifact or a vertically-oriented dissection flap. No pseudoaneurysm. No significant stenosis. Note the right ICA is smaller in caliber than the left. The ECA is patent and unremarkable. Left Carotid: The common carotid, internal carotid, and external carotid arteries are widely patent. No dissection, significant atherosclerotic plaque, or calcification identified. Vertebrals: The vertebrobasilar system shows no stenoses. Note the left vertebral artery is larger in caliber than the right. Intracranial Circulation: (See report of CT angiogram of the head performed at the same time). Other: The visualized lung apices are clear. Muscle and fascial planes of the neck are unremarkable. Spondylosis is noted in the mid and lower cervical spine. Degenerative disk and uncovertebral change is seen at C4-C5 and C5-C6. Mild to moderate foraminal stenosis. IMPRESSION: 1. There is subtle vertical lucency seen through the mid aspect of the right ICA. This begins at its origin through the bulbar region into the proximal cervical segment. Indistinctness of the vessel wall is seen suggesting motion artifact. This internal lucency may be secondary to artifact, although a dissection flap is not excludable. This could be further evaluated with carotid Doppler ultrasound. 2. The left carotid extracranial circulation and bilateral vertebral artery circulation in the neck is patent and unremarkable. CTA head 10/15/17: FINDINGS: CT ANGIOGRAM HEAD: RIGHT: Internal Carotid artery: No evidence of dissection. No evidence of aneurysm along the intracranial ICA. Anterior Cerebral Artery: Patent without significant stenosis, aneurysm, or vascular malformation. 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 A2 and distal branches are primarily supplied from the left A1 segment through a patent A-COM. Middle Cerebral Artery: Patent without significant stenosis, aneurysm, or vascular malformation. Posterior Cerebral Artery: Moderate stenosis is seen in the P2 segment. Proximal and distal to this the SALES HOST is patent and unremarkable. Posterior Communicating Artery: Not visualized. Vertebral Artery: Patent without significant stenosis. No evidence of dissection. Small in caliber. The PICA is unremarkable. LEFT: Internal Carotid artery: No evidence of dissection. No evidence of aneurysm along the intracranial ICA. Anterior Cerebral Artery: Patent without significant stenosis, aneurysm, or vascular malformation. The A1 segment is dominant. Middle Cerebral Artery: Patent without significant stenosis, aneurysm, or vascular malformation. Posterior Cerebral Artery: Patent without significant stenosis, aneurysm, or vascular malformation. Posterior Communicating Artery: Not visualized. Vertebral Artery: Patent without significant stenosis. No evidence of dissection. Dominant. CENTRAL: Anterior Communicating Artery: Patent. No aneurysm. Basilar Artery: Patent without significant stenosis. No aneurysm. DURAL VENOUS SINUSES AND MAJOR CENTRAL VEINS: Not well opacified secondary to timing of study during early arterial phase of contrast administration. IMPRESSION: 1. Moderate stenosis in the P2 segment of the right SALES HOST. 2. Otherwise unremarkable CT angiogram of the intracranial circulation. No aneurysm. 3. 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 Findings: Relevant images are indicated (image number, series number). There is patient motion artifact. 6.8 mm diffusion restriction right thalamus, corresponding low signal ADC, increased signal seen on axial FLAIR consistent with subacute ischemic stroke. No hemosiderin deposition present in the brain. There is no hemorrhage, mass or midline shift. There is no cortical atrophy and moderate dense scattered periventricular, peritrigonal white matter disease present. The pituitary, midbrain, cranial cervical junction, limited evaluation upper cervical cord negative Impressions: Study partly degraded by motion artifact. 1. Right thalamic 6.8 mm subacute ischemic stroke. No hemorrhage or mass effect. 2. Moderate dense scattered white matter disease most likely related to chronic small vessel ischemic disease, correlate with patient risk factors. 3. Remaining brain, orbits unremarkable. Echocardiogram: Moderate concentric LV hypertrophy, EF of 55-60%. Impaired relaxation consistent with Grade I diastolic dysfunction. No regional wall motion abnormalities are seen. Mild RV enlargement. Bubble study was negative for an atrial shunt. - FOLLOW UP Follow Up: An echocardiogram shows you have diastolic dysfunction with an enlarged right ventricle. The most likely cause is from uncontrolled blood pressure. This may improve as your blood pressure becomes more controlled. A CT of your head in the ED showed no evidence of bleeding or ischemia, but a head MRI showed a subacute right ischemic stroke. This explains your left sided weakness. We found that your triglyceride level was quite high, which is the liver's response to high blood glucose. I have prescribed one new medication for this. Your PSA today was 5.2 today, continue to see urology. Due to the confirmation of a stroke, you need to take all medications as prescribed. One of your high blood pressure medications also help with your recent bladder problems. Please stay off work until you follow up with your PCP. Rest when you feel tired. - TIME SPENT Time Spent in Discharge (Minutes): 60
[2017-10-16] MEDS ORDERED: ASPIRIN 325 MG TABLET PO SCH (08:00)
[2017-10-16] MEDS: POLYETHYLENE GLYCOL 3350 17 GM PACKET PO SCH (10:16)
--- NOTE | 2017-10-16 11:13 | Discharge Plan ---
Discharge Plan Disposition: Home, Self Care Condition: Good Prescriptions: Aspirin [Alireza] 325 mg PO DAILYWM #30 tablet Atorvastatin [Lipitor] 10 mg PO DAILY #30 tablet Gemfibrozil [Lopid] 600 mg PO BIDAC #60 tablet Losartan [Cozaar] 25 mg PO DAILY #30 tablet Prazosin [Minipress] 1 mg PO QPM #30 capsule Diet: Cardiac Activity Restrictions: No Restrictions Shower Restrictions: No Driving Restrictions: Yes Weight Bearing: Full Weight Instruction Topics: Metoprolol extended-release tablets, Lisinopril tablets Additional Instructions or Follow Up instructions: An echocardiogram shows you have diastolic dysfunction with an enlarged right ventricle. The most likely cause is from uncontrolled blood pressure. This may improve as your blood pressure becomes more controlled. A CT of your head in the ED showed no evidence of bleeding or ischemia, but a head MRI showed a subacute right ischemic stroke. This explains your left sided weakness. We found that your triglyceride level was quite high, which is the liver's response to high blood glucose. I have prescribed one new medication for this. Your PSA today was 5.2 today, continue to see urology. Due to the confirmation of a stroke, you need to take all medications as prescribed. One of your high blood pressure medications also help with your recent bladder problems. Please stay off work until you follow up with your PCP. Rest when you feel tired. No Smoking: If you smoke, Please STOP! Call for help. Follow-up with: Portillo Corea DO [Primary Care Provider] -
[2017-10-16 11:41] VITALS: BP 144/96
[2017-10-16] MEDS ORDERED: LOSARTAN 50 MG TABLET PO SCH (12:00)
--- NOTE | 2017-10-16 17:45 | Ultrasound Report ---
CAROTID DUPLEX: 10/15/2017 CLINICAL INDICATION: Possible dissection on CT angiogram. TECHNIQUE: Real-time sonographic vascular imaging was performed by the clinical rehabilitation liaison through the carotid arteries utilizing both color-flow and Doppler spectral analysis. Multiple inside technical sales representative static images were saved for review. Vessel PSV cm/sec EDV cm/sec ICA/CCA PSV Degree of Stenosis Plaque Estimate% RCCA Prox 49 -- -- RCCA Dist 62 22 -- RECA 74 -- -- RT BULB 47 15 0.76 [facility] Prox 43 12 0.69 [facility] Mid 41 20 0.66 [facility] Dist 41 19 0.66 RVA 35 -- -- RVA flow direction: Antegrade Vessel PSV cm/sec EDV cm/sec ICA/CCA PSV Degree of Stenosis Plaque Estimate % LCCA Prox 80 -- -- LCCA Dist 55 17 -- LECA 59 -- -- LFT BULB 45 13 0.82 LICA Prox 31 13 0.56 LICA Mid 65 35 1.18 LICA Dist 44 19 0.80 LVA 41 -- -- LVA flow direction: Antegrade Velocity criteria are extrapolated from diameter data as defined by the Society of Radiologists in Ultrasound Consensus Conference Radiology 2003; 229; 340-346. Degree of Stenosis % ICA PSV cm/sec Plaque Estimate % ICA/CCA RSV Ratio ICA EDV cm/sec Normal < 125 None < 2.0 < 40 <50 < 125 <50 < 2.0 < 40 50-69 125-130 >/=50 2.0-4.0 40-100 >/=70 but less than near occlusion > 230 >/=50 > 4.0 > 100 Near occlusion High, low or undetectable Visible lumen Variable Variable Total occlusion Undetectable No detectable lumen Not applicable Not applicable Right: There is no plaquing in the right carotid bifurcation. No dissection is identified. No stenosis is seen. Left: There is no plaquing in the left carotid bifurcation. No stenosis or dissection is seen. The vertebral arteries demonstrate antegrade flow bilaterally. IMPRESSION: No evidence of carotid dissection at the site questioned on the CT angiogram. Normal carotid duplex. TD: 10/15/2017 12:50 [facility]
== END 2017-10-16 12:45 | disposition home or self-care (01) ==
LOC: EDUNIT# → ED 04:34 → OBS 06:21
PROVIDERS: ADMIT Specialist; ATTEND Nurse Practitioner
DX: I63.9 Cerebral infarction, unspecified (principal); R29.810 Facial weakness; I69.354 Hemiplegia and hemiparesis following cerebral infarction affecting left non-dominant side; I11.0 Hypertensive heart disease with heart failure; I50.9 Heart failure, unspecified; N40.1 Benign prostatic hyperplasia with lower urinary tract symptoms; N39.498 Other specified urinary incontinence; R35.0 Frequency of micturition; R35.1 Nocturia; R30.0 Dysuria; R97.20 Elevated prostate specific antigen [PSA]; E78.1 Pure hyperglyceridemia; E78.5 Hyperlipidemia, unspecified; R90.82 White matter disease, unspecified; I66.21 Occlusion and stenosis of right posterior cerebral artery; Z79.899 Other long term (current) drug therapy; T50.906A Underdosing of unspecified drugs, medicaments and biological substances, initial encounter; Z91.128 Patient's intentional underdosing of medication regimen for other reason
CPT/HCPCS: 36415; 70450; 70496; 70498; 70551; 80053; 80061; 81001; 83036; 83690; 84154; 85025; 85610; 85730; 93005; 93306; 93880; 96361; 96374; 96375; 97162; 99217; 99218; 99284; 99285; A9270; G8978; G8979; G8980; J2060; Q9967; 87086

== ENCOUNTER 2017-12-04 04:06 | Emergency (ER) | payer OTHER ==
--- NOTE | 2017-12-04 04:31 | ED Physician Documentation ---
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 He also notice decreased, but not absent, hearing in left ear. He became concerned that his blood pressure was high, based on inpatient stay in September ([facility]) for CVA (at which time he had unusually high blood pressure readings), and he took several measurements of his blood pressure with readings repeatedly in the 190-200 range SBP and 110s- 120s DBP. He denies any new weakness, numbness, denies headache, visual changes. He also notes that the hearing changes have resolved ROLLER TURNER. He was recently on an antibiotic for UTI (does not recall which one, but it was either once or twice a day) with transient improvement in his dysuria and frequency. Review of Systems Constitutional: denies: Fever, Chills, Sweats Eyes: reports: Reviewed and negative Ears: reports: Loss of hearing (decreased hearing left ear, but not complete loss; this has resolved ROLLER TURNER) Cardiac: reports: Reviewed and negative Respiratory: reports: Reviewed and negative GI: reports: Reviewed and negative : reports: Dysuria, Frequency. denies: Hematuria Neurologic: reports: Reviewed and negative PD PAST MEDICAL HISTORY - Past Medical History Past Medical History: Yes Cardiovascular: Hypertension, High cholesterol, Other Respiratory: None Neuro: None Endocrine/Autoimmune: None GI: None : Benign prostate hypertrophy, Incontinence, Frequency HEENT: None Psych: None Musculoskeletal: None Derm: None Other Past Medical History: UTI - Past Surgical History Past Surgical History: Yes HEENT: Cataracts - Present Medications Home Medications: Ambulatory Orders Medication Instructions Recorded Confirmed Aspirin [Alireza] 325 mg PO DAILYWM #30 tablet 10/16/17 Atorvastatin [Lipitor] 10 mg PO DAILY #30 tablet 10/16/17 Gemfibrozil [Lopid] 600 mg PO BIDAC #60 tablet 10/16/17 Losartan [Cozaar] 25 mg PO DAILY #30 tablet 10/16/17 Prazosin [Minipress] 1 mg PO QPM #30 capsule 10/16/17 Cephalexin [Keflex] 500 mg PO QID #39 capsule 12/04/17 - Allergies Allergies/Adverse Reactions: Allergies Allergy/AdvReac Type Severity Reaction Status Date / Time No Known Drug Allergies Allergy Verified 12/04/17 04:14 - Social History Does the pt smoke?: No Smoking Status: Never smoker Does the pt drink ETOH?: No Does the pt have substance abuse?: No - Immunizations Immunizations are current?: Yes - POLST Patient has POLST: No PD ED PE NORMAL - Vitals Vital signs reviewed: Yes - General General: Alert and oriented X 3, No acute distress, Well developed/nourished - HEENT HEENT: PERRL, EOMI - Neck Neck: Supple, no meningeal sign - Cardiac Cardiac: RRR, No murmur - Respiratory Respiratory: No respiratory distress, Clear bilaterally - Abdomen Abdomen: Soft, Non tender, Non distended - Back Back: No CVA TTP - Neuro Neuro: Alert and oriented X 3, architectural modeler 2-12 intact, No motor deficit, No sensory deficit, Normal speech, Other (2+/4 DTR bilateral patella and bicep) Eye Opening: Spontaneous Motor: Obeys Commands Verbal: Oriented GCS Score: 15 Results - Vitals Vitals: Vital Signs - 24 hr 12/04/17 12/04/17 12/04/17 04:15 04:17 04:33 Temperature 36.7 C Heart Rate 93 75 Respiratory 17 12 Rate Blood Pressure 170/118 H 184/119 H 179/93 H O2 Saturation 97 98 12/04/17 12/04/17 12/04/17 05:34 05:46 06:37 Temperature 36.5 C Heart Rate 67 68 68 Respiratory 16 16 16 Rate Blood Pressure 160/97 H 184/100 H 174/104 H O2 Saturation 98 97 100 Oxygen O2 Source [With Activity] Room air O2 Source [Without Activity] Room air O2 Source Room air - Labs Labs: Microbiology 12/04/17 04:33 Urine Culture - Preliminary Urine,Clean Catch CULTURE IN PROGRESS. RESULTS TO FOLLOW. Laboratory Tests 12/04/17 04:33 Urine Color YELLOW Urine Clarity HAZY Urine pH 6.0 Ur Specific [place] 1.020 Urine Protein TRACE Urine Glucose (UA) NEGATIVE Urine Ketones NEGATIVE Urine Occult Blood LARGE H Urine Nitrite NEGATIVE Urine Bilirubin NEGATIVE Urine Urobilinogen 0.2 (NORMAL) Ur Leukocyte Esterase LARGE H Urine RBC 6-10 H Urine WBC >25 H Ur Squamous Epith Cells RARE Squamous Urine Bacteria Many H Ur Microscopic Review INDICATED Urine Culture Comments INDICATED PD MEDICAL DECISION MAKING - ED course Complexity details: reviewed old records, re-evaluated patient, considered differential, d/w patient ED course: patient presents with urinary frequency and dysuria (he used bathroom quite frequently during ED stay, small output each time), and UA c/w UTI. Based on his description of recent antibiotic being either QD or BID, he was likely on either Cipro or Levaquin, and he had transient, modest relief at best; thus I prescribed keflex at this time, advised to seek f/u with urology, which he has been working on with PMD. He also presents with hypertension. H/o hypertension, but the readings in ED are significantly higher than his baseline. Given clonidine PO with slight improvement in BP; however, no signs or symptoms attributable to the elevated readings tonight and he is due to take both his minipress and Cozaar in about two hours, and thus plan is to d/c home and instructed to take both of these medications. He measures his blood pressure regularly at home and exhibits a clear understanding of concerning signs, symptoms, and BP readings that would necessitate return to ED. Departure - Departure Disposition: 01 Home, Self Care Clinical Impression: Hypertension Qualifiers: Hypertension type: unspecified Qualified Code(s): I10 - Essential (primary) hypertension Urinary tract infection Qualifiers: Urinary tract infection type: acute cystitis Hematuria presence: with hematuria Qualified Code(s): N30.01 - Acute cystitis with hematuria Condition: Good Instructions: ED Hypertension Conf Out Of Control, ED UTI Cystitis Male Follow-Up: Portillo Corea DO [Primary Care Provider] - Prescriptions: Cephalexin [Keflex] 500 mg PO QID #39 capsule Comments: You can take pyridium (Azo is the most common brand name of this medication) as directed; it is available [id number] and can help with the discomfort and urinary frequency Discharge Date/Time: 12/04/17 06:56
[2017-12-04 04:49] LABS: BILIRUBIN,URINE NEGATIVE (NEGATIVE); GLUCOSE, URINE (UA) NEGATIVE (NEGATIVE); KETONES,URINE (UA) NEGATIVE (NEGATIVE); LEUKOCYTE ESTERASE, URINE LARGE (NEGATIVE); NITRITE,URINE NEGATIVE (NEGATIVE); OCCULT BLOOD,URINE LARGE (NEGATIVE); PROTEIN,URINE TRACE mg/dL (NEGATIVE); UROBILINOGEN,URINE 0.2 (NORMAL) E.U./dL (NORMAL)
[2017-12-04] MEDS ORDERED: cloNIDine 0.1 MG TABLET PO STA (05:16)
[2017-12-04 05:20] LABS: CLARITY,URINE HAZY (CLEAR)
[2017-12-04 05:21] LABS: BACTERIA,URINE Many /HPF (None Seen); SQUAMOUS EPITHELIAL CELL,UR RARE Squamous (<= Few)
[2017-12-04 06:42] VITALS: BP 174/104
[2017-12-04] MEDS ORDERED: cephALEXin 250 MG CAPSULE PO STA (06:42)
[2017-12-04] MEDS ORDERED: PHENAZOPYRIDINE 100 MG TABLET PO STA (06:42)
== END 2017-12-04 06:56 | disposition home or self-care (01) ==
LOC: ED 04:06
DX: I10 Essential (primary) hypertension (principal); N30.01 Acute cystitis with hematuria
CPT/HCPCS: 81001; 87086; 99284; A9270; 81003; 87077

== ENCOUNTER 2018-08-01 15:21 | Emergency (ER) | payer OTHER ==
[2018-08-01] MEDS ORDERED: cloNIDine 0.1 MG TABLET PO STA (15:49)
--- NOTE | 2018-08-01 15:59 | ED Physician Documentation ---
History of Present Illness - Stated complaint Stated Complaint: HIGH BLOOD PRESSURE - Chief complaint Chief Complaint: General - Additonal information Additional information: hx from pt 63 male known hx HTN had CVA a year ago related to HTN has int numbness to L side every since worse when his BP is high he is on BP meds and in fact had the dose of one doubled 3 weeks ago but he doesn't know his meds or what was doubled and he has some L sided numbness, no weakness had KERR earlier not now some URI sx recently as well but only taking flonase no CP AP his back and legs are sore from playing volleyball and hiking Review of Systems Constitutional: denies: Fever, Chills Cardiac: denies: Chest pain / pressure Respiratory: denies: Dyspnea GI: denies: Abdominal Pain Neurologic: reports: Numbness. denies: Generalized weakness, Focal weakness, Difficulty speaking, Headache (not now) Endocrine: denies: Easy bruising / bleeding Immunocompromised: denies: Immunocompromised PD PAST MEDICAL HISTORY - Past Medical History Cardiovascular: Hypertension, High cholesterol, Other Respiratory: None Endocrine/Autoimmune: None GI: None : Benign prostate hypertrophy, Incontinence, Frequency HEENT: None Psych: None Musculoskeletal: None Derm: None - Past Surgical History Past Surgical History: Yes HEENT: Cataracts - Present Medications Home Medications: Ambulatory Orders Medication Instructions Recorded Confirmed Aspirin [Alireza] 325 mg PO DAILYWM #30 tablet 10/16/17 Atorvastatin [Lipitor] 10 mg PO DAILY #30 tablet 10/16/17 Prazosin [Minipress] 1 mg PO QPM #30 capsule 10/16/17 Fluticasone [Flonase] 1 sprays BRITNEY DAILY 08/01/18 08/01/18 Losartan [Cozaar] 50 mg PO DAILY 08/01/18 Tamsulosin HCl [Flomax] 0.4 mg PO DAILY 08/01/18 08/01/18 - Allergies Allergies/Adverse Reactions: Allergies Allergy/AdvReac Type Severity Reaction Status Date / Time No Known Drug Allergies Allergy Verified 08/01/18 15:33 - Social History Does the pt smoke?: No Smoking Status: Never smoker Does the pt drink ETOH?: No Does the pt have substance abuse?: No - Immunizations Immunizations are current?: Yes - POLST Patient has POLST: No PD ED PE NORMAL - Vitals Vital signs reviewed: Yes - General General: Alert and oriented X 3 - HEENT HEENT: PERRL, EOMI - Neck Neck: Supple, no meningeal sign - Cardiac Cardiac: RRR - Respiratory Respiratory: No respiratory distress, Clear bilaterally - Abdomen Abdomen: Soft, Non tender - Derm Derm: Normal color - Extremities Extremities: No deformity, Normal ROM s pain - Neuro Neuro: Alert and oriented X 3, manager database administration 2-12 intact, No motor deficit. No: No sensory deficit (slightly dec senation to L hand - NIHSS 1) Eye Opening: Spontaneous Motor: Obeys Commands Verbal: Oriented GCS Score: 15 - Psych Psych: Normal mood Results - Vitals Vitals: Vital Signs - 24 hr 08/01/18 15:28 Temperature 36.8 C Heart Rate 97 Respiratory 18 Rate Blood Pressure 205/140 H O2 Saturation 97 Oxygen O2 Source [With Activity] Room air O2 Source [Without Activity] Room air O2 Source Room air - EKG (time done) 1532 Rate: Rate (enter#) (75) Rhythm: NSR [place]: Normal Intervals: Normal OR QRS: LVH (not new) PD MEDICAL DECISION MAKING - ED course ED course: BP better in ED with clonidine no end organ damage identiefied just chrnic microvascular dz and lacuns on CT numbness better pt states numbness waxes and wanes inversely with BP will dc HR 62 and on prazosin - CCB and BBP less ideal will add HCTZ pt needs close fup and perhaps further wup to cause of extreme HTN such as renal artery imaging and wup for pheo Departure - Departure Disposition: 01 Home, Self Care Clinical Impression: Hypertension Qualifiers: Hypertension type: unspecified Qualified Code(s): I10 - Essential (primary) hypertension Condition: Good Instructions: ED Hypertension Conf Out Of Control Follow-Up: Portillo Corea DO [Primary Care Provider] - Comments: Your blood pressure is wildly out of control No new damage was found on your work up today , but the CT scan shows 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 I also suggest you have some more work up to determine if there is a correctable cause of your very high blood pressure - perhaps imaging of your renal arteries and testing for a pheochromocytoma Return if worse
[2018-08-01 16:03] LABS: BASOPHILS % (AUTO) 0.8 %; EOSINOPHILS # (AUTO) 0.2 10^3/uL (0.0-0.7); EOSINOPHILS % (AUTO) 3.7 %; LYMPHOCYTES # (AUTO) 1.8 10^3/uL (1.5-3.5); LYMPHOCYTES % (AUTO) 33.7 %; MEAN CORPUSCULAR HEMOGLOBIN 30.6 pg (27.0-31.0); MEAN CORPUSCULAR HGB CONC 34.1 g/dL (32.0-36.0); MEAN CORPUSCULAR VOLUME 89.6 fL (80.0-94.0); MEAN PLATELET VOLUME 8.2 fL (7.4-11.4); MONOCYTES # (AUTO) 0.5 10^3/uL (0.0-1.0); NEUTROPHILS # (AUTO) 2.9 10^3/uL (1.5-6.6); NEUTROPHILS % (AUTO) 52.8 %; PLT - PLATELET COUNT 232 10^3/uL (130-450); RED BLOOD COUNT 4.91 10^6/uL (4.70-6.10); RED CELL DISTRIBUTION WIDTH 14.1 % (12.0-15.0); WHITE BLOOD COUNT 5.5 x10^3/uL (4.8-10.8)
[2018-08-01 16:09] LABS: CALCIUM 8.3 mg/dL (8.5-10.3)
--- NOTE | 2018-08-01 16:23 | CT Report ---
Reason: high BP L sided numbness Procedure Date: 08/01/2018 Accession Number: [id number] / [id number] Procedure: CT - Head W/O CPT Code: FULL RESULT: EXAM: CT HEAD EXAM DATE: 08/01/2018 04:01 PM. CLINICAL HISTORY: High BP L sided numbness. COMPARISON: NECK ANGIO 10/15/2017 7:52 AM HEAD W/O 10/15/2017 4:50 AM. TECHNIQUE: Multiaxial CT images were obtained from the foramen magnum to the vertex. Reformats: Sagittal and coronal. IV contrast: None. In accordance with CT protocol optimization, one or more of the following dose reduction techniques were utilized for this exam: automated exposure control, adjustment of mA and/or KV based on patient size, or use of iterative reconstructive technique. FINDINGS: Parenchyma: No acute intraparenchymal hemorrhage. No evidence of mass or midline shift. Triplett-white differentiation is distinct. Redemonstrated hypodense changes to the periventricular white matter, likely related to chronic small vessel ischemic disease. Chronic lacunar infarct in the right thalamus. Extraaxial Spaces: No subdural or epidural collections identified. Ventricles: Normal in size and position. Sinuses and Orbits: Imaged paranasal sinuses, orbits, and mastoids show no significant abnormality. Bones: No evidence of fracture or calvarial defect. Other: None. IMPRESSION: No acute intracranial findings. An acute infarct may not be visible by CT. Follow-up examinations recommended as clinically indicated. RADIA
[2018-08-01] MEDS ORDERED: hydroCHLOROthiazide 25 MG TABLET PO STA (17:01)
[2018-08-01 17:11] VITALS: BP 144/98
== END 2018-08-01 18:08 | disposition home or self-care (01) ==
LOC: ED 15:21
DX: I10 Essential (primary) hypertension (principal); E78.00 Pure hypercholesterolemia, unspecified; R94.31 Abnormal electrocardiogram [ECG] [EKG]; R20.0 Anesthesia of skin; Z86.73 Personal history of transient ischemic attack (TIA), and cerebral infarction without residual deficits; Z79.82 Long term (current) use of aspirin
CPT/HCPCS: 36415; 70450; 80048; 84484; 85025; 99283; A9270

== ENCOUNTER 2018-09-18 08:01 | Outpatient (CLI) | payer OTHER | END 2018-09-18 08:02 | disposition home or self-care (01) | LOC: DI 08:01 | PROVIDERS: ATTEND Family Medicine | DX: I10 Essential (primary) hypertension (principal); R00.8 Other abnormalities of heart beat; I51.7 Cardiomegaly; I77.810 Thoracic aortic ectasia | CPT/HCPCS: 93306 ==

== ENCOUNTER 2018-11-07 02:09 | Emergency (ER) | payer BC, OTHER ==
--- NOTE | 2018-11-07 02:30 | ED Physician Documentation ---
History of Present Illness - Stated complaint Stated Complaint: SOA,NUMBNESS,RAPID HEART RATE - Chief complaint Chief Complaint: Neuro - History obtained from History obtained from: Patient - History of Present Illness Timing: Today (tonight) Pain level max: 0 Pain level now: 0 Improved by: nothing Worsened by: no apparent inciting or exacerbating factors - Additonal information Additional information: had ten-minute episode tonight of diaphoresis, dyspnea, stiffness (per patient) of neck. he has had gradually worsening left-sided numbness (extremities and chest) over past 2 months Review of Systems Constitutional: reports: Sweats. denies: Fever, Chills Eyes: reports: Reviewed and negative Cardiac: reports: Reviewed and negative Respiratory: reports: Dyspnea. denies: Cough, Wheezing GI: reports: Reviewed and negative : denies: Dysuria, Frequency Musculoskeletal: reports: Neck pain (stiffness, resolved) Neurologic: reports: Numbness. denies: Generalized weakness, Focal weakness, Headache PD PAST MEDICAL HISTORY - Past Medical History Past Medical History: Yes Cardiovascular: Hypertension, High cholesterol, Other Respiratory: None Neuro: CVA Endocrine/Autoimmune: None GI: None : Benign prostate hypertrophy, Incontinence, Frequency HEENT: None Psych: None Musculoskeletal: None Derm: None - Past Surgical History Past Surgical History: Yes HEENT: Cataracts - Present Medications Home Medications: Ambulatory Orders Medication Instructions Recorded Confirmed Aspirin [Alireza] 325 mg PO DAILYWM #30 tablet 10/16/17 11/07/18 Atorvastatin [Lipitor] 10 mg PO DAILY #30 tablet 10/16/17 11/07/18 Prazosin [Minipress] 1 mg PO QPM #30 capsule 10/16/17 11/07/18 Fluticasone [Flonase] 1 sprays BRITNEY DAILY 08/01/18 11/07/18 Losartan [Cozaar] 50 mg PO DAILY 08/01/18 11/07/18 Tamsulosin HCl [Flomax] 0.4 mg PO DAILY 08/01/18 11/07/18 hydroCHLOROthiazide 25 mg PO DAILY #30 tablet 08/01/18 11/07/18 [Hydrochlorothiazide] Azithromycin [Zithromax] 250 mg PO DAILY #4 tablet 11/07/18 - Allergies Allergies/Adverse Reactions: Allergies Allergy/AdvReac Type Severity Reaction Status Date / Time No Known Drug Allergies Allergy Verified 11/07/18 02:21 - Social History Does the pt smoke?: No Smoking Status: Never smoker Does the pt drink ETOH?: No Does the pt have substance abuse?: No - Immunizations Immunizations are current?: Yes - POLST Patient has POLST: No PD ED PE NORMAL - Vitals Vital signs reviewed: Yes - General General: Alert and oriented X 3, No acute distress, Well developed/nourished - HEENT HEENT: PERRL, EOMI, Moist mucous membranes - Neck Neck: Supple, no meningeal sign - Cardiac Cardiac: RRR, No murmur, No gallop, No rub - Respiratory Respiratory: No respiratory distress, Clear bilaterally - Abdomen Abdomen: Soft, Non tender - Derm Derm: Normal color, Warm and dry - Extremities Extremities: No edema - Neuro Neuro: Alert and oriented X 3, chair and couch maker 2-12 intact, No motor deficit, No sensory deficit, Normal speech Results - Vitals Vitals: Oxygen O2 Source [With Activity] Room air O2 Source [Without Activity] Room air O2 Source Room air - EKG (time done) No standard instances Rate: Rate (enter#) (62) Rhythm: NSR [place]: Normal Intervals: Normal [place] QRS: Normal Ischemia: Non specific changes (V5-V6) Compare to prior EKG: Unchanged from prior EKG (08/01/18) - Labs Labs: Laboratory Tests 11/07/18 11/07/18 11/07/18 02:25 02:25 02:25 WBC 5.5 RBC 4.73 Hgb 14.5 Hct 41.8 L MCV 88.3 MCH 30.5 MCHC 34.6 RDW 14.8 Plt Count 229 MPV 7.7 Neut # (Auto) 3.3 Lymph # (Auto) 1.6 [place] # (Auto) 0.4 Eos # (Auto) 0.2 Baso # (Auto) 0.0 Absolute Nucleated RBC 0.01 Nucleated RBC % 0.1 Sodium 137 Potassium 2.8 L Chloride 102 Carbon Dioxide 27 Anion Gap 8.0 BUN 28 H Creatinine 1.3 H Estimated GFR (MDRD) 55 L Glucose 187 H Calcium 8.4 L Total Bilirubin 0.9 AST 35 ALT 43 Alkaline Phosphatase 98 Troponin I < 0.04 Total Protein 6.5 L Albumin 3.8 Globulin 2.7 Albumin/Globulin Ratio 1.4 Lipase 44 - Rads (name of study) chest xray Radiology: Prelim report reviewed, See rad report PD MEDICAL DECISION MAKING - ED course Complexity details: reviewed results, re-evaluated patient, considered differential, d/w patient, d/w family Departure - Departure Disposition: 01 Home, Self Care Clinical Impression: Hypokalemia, Paresthesia Condition: Good Instructions: ED Potassium Deficiency, ED Paraesthesias Follow-Up: Portillo Corea DO [Primary Care Provider] - Within 1 week Prescriptions: Azithromycin [Zithromax] 250 mg PO DAILY #4 tablet Comments: As we discussed, there is a finding on your chest xray in the upper right lung. It is not clear at this time what is causing this abnormal finding. Because infection (such as pneumonia) is one of the more common explanations for such a finding, you are being prescribed an antibiotic. You will need to follow up with your primary care provider to follow-up for the low potassium as well as the chest xray finding. Discharge Date/Time: 11/07/18 05:51
[2018-11-07 02:35] LABS: BASOPHILS % (AUTO) 0.4 %; EOSINOPHILS # (AUTO) 0.2 10^3/uL (0.0-0.7); EOSINOPHILS % (AUTO) 3.2 %; HGB - HEMOGLOBIN 14.5 g/dL (14.0-18.0); LYMPHOCYTES # (AUTO) 1.6 10^3/uL (1.5-3.5); LYMPHOCYTES % (AUTO) 28.1 %; MEAN CORPUSCULAR HEMOGLOBIN 30.5 pg (27.0-31.0); MEAN CORPUSCULAR HGB CONC 34.6 g/dL (32.0-36.0); MEAN CORPUSCULAR VOLUME 88.3 fL (80.0-94.0); MEAN PLATELET VOLUME 7.7 fL (7.4-11.4); MONOCYTES # (AUTO) 0.4 10^3/uL (0.0-1.0); NEUTROPHILS # (AUTO) 3.3 10^3/uL (1.5-6.6); NEUTROPHILS % (AUTO) 60.3 %; PLT - PLATELET COUNT 229 10^3/uL (130-450); RED BLOOD COUNT 4.73 10^6/uL (4.70-6.10); RED CELL DISTRIBUTION WIDTH 14.8 % (12.0-15.0); WHITE BLOOD COUNT 5.5 x10^3/uL (4.8-10.8)
[2018-11-07 03:13] LABS: ALBUMIN 3.8 g/dL (3.2-5.5); ALBUMIN/GLOBULIN RATIO 1.4 (1.0-2.2); BILIRUBIN,TOTAL 0.9 mg/dL (0.2-1.0); CALCIUM 8.4 mg/dL (8.5-10.3); CREATININE 1.3 mg/dL (0.6-1.2); TOTAL PROTEIN 6.5 g/dL (6.7-8.2)
--- NOTE | 2018-11-07 03:38 | XRAY Report ---
Reason: dyspnea Procedure Date: 11/07/2018 Accession Number: [id number] / [id number] Procedure: XR - Chest 2 View X-Ray CPT Code: 28069 FULL RESULT: EXAM: CHEST RADIOGRAPHY EXAM DATE: 11/07/2018 03:22 AM. CLINICAL HISTORY: Dyspnea. COMPARISON: None. TECHNIQUE: 2 views. FINDINGS: Lungs/Pleura: Small right suprahilar airspace opacity with clear left lung. No pneumothorax or effusion. Mediastinum: Heart and mediastinal contours are unremarkable. Other: None. IMPRESSION: Small right suprahilar airspace opacity, possibly pneumonia. RADIA
[2018-11-07] MEDS ORDERED: POTASSIUM BICARB 25 MEQ TABLET PO STA (04:26)
[2018-11-07] MEDS ORDERED: POTASSIUM CHLOR 10 MEQ/100 ML 10 MEQ/100 ML BAG IV ONE (04:27)
[2018-11-07] MEDS ORDERED: AZITHROMYCIN 250 MG TABLET PO STA (04:27)
[2018-11-07 05:23] VITALS: BP 120/84
== END 2018-11-07 05:51 | disposition home or self-care (01) ==
LOC: ED 02:09
DX: E87.6 Hypokalemia (principal); R20.2 Paresthesia of skin; R91.8 Other nonspecific abnormal finding of lung field; I10 Essential (primary) hypertension; Z79.82 Long term (current) use of aspirin
CPT/HCPCS: 36415; 71046; 80053; 83690; 84484; 85025; 93005; 96365; 99283; 99284; A9270

== ENCOUNTER 2018-11-18 09:13 | Outpatient (CLI) | payer BC ==
--- NOTE | 2018-11-18 12:29 | XRAY Report ---
Reason: RUL PNEUMONIA Procedure Date: 11/18/2018 Accession Number: [id number] / [id number] Procedure: XR - Chest 2 View X-Ray CPT Code: 37962 FULL RESULT: EXAM: CHEST RADIOGRAPHY EXAM DATE: 11/18/2018 09:35 AM. CLINICAL HISTORY: Right upper lobe pneumonia. COMPARISON: Chest 2 view 11/07/2018 3:02 AM. TECHNIQUE: 2 views. FINDINGS: Lungs/Pleura: No focal opacities evident. No pleural effusion. No pneumothorax. Normal volumes. Mediastinum: Heart and mediastinal contours are stable. Other: None. IMPRESSION: No definite lobar consolidation is detected. RADIA
== END 2018-11-18 09:14 | disposition home or self-care (01) ==
LOC: DI 09:13
PROVIDERS: ATTEND Family Medicine
DX: J18.1 Lobar pneumonia, unspecified organism (principal)
CPT/HCPCS: 71046

== ENCOUNTER 2019-02-10 00:28 | Emergency (ER) | payer BC ==
--- NOTE | 2019-02-10 00:41 | ED Physician Documentation ---
PD HPI FOCAL NEURO - Stated complaint Stated Complaint: STROKE LIKE SYMPTOMS - History obtained from History obtained from: Patient - History of Present Illness Timing - onset: Other (see below) Timing - details: Gradual onset, Waxing and waning Time of symptom onset unknown: Time of onset unknown (several days/1 week) Severity of deficit: Mild Weakness: Arm, Hand, Right Numbness: Arm, Hand, Right, Left Associated symptoms: No: Headache, Nausea / vomiting, Seizure, Syncope, Fall, Head injury, Chest pain, Neck pain, Back pain, Fever Baseline status: positive: A&OX3, ambulatory, indep Recently seen: Emergency Dept (T+R 3 months ago (October) for similar symptoms) - Additional information Additional information: c/o LUE paresthesias which have been waxing and waning since early 2017 but worse over past week. He also has had intermittent, gradually worsening RUE paresthesias and weakness x 1 week. Saw PMD earlier today, no testing at that time. Prior to coming to ED, he became particularly concerned with his blood pressure, with readings of 202/118 and 190/127 Review of Systems Constitutional: reports: Reviewed and negative Eyes: reports: Reviewed and negative Ears: reports: Reviewed and negative Cardiac: reports: Reviewed and negative Respiratory: reports: Reviewed and negative GI: reports: Reviewed and negative Musculoskeletal: reports: Reviewed and negative Neurologic: reports: Focal weakness (RUE), Numbness (BUE). denies: Generalized weakness, Difficulty speaking, Confused, Altered mental status, Headache PD PAST MEDICAL HISTORY - Past Medical History Cardiovascular: Hypertension, High cholesterol, Other Respiratory: None Neuro: CVA Endocrine/Autoimmune: None GI: None : Benign prostate hypertrophy, Incontinence, Frequency HEENT: None Psych: None Musculoskeletal: None Derm: None - Past Surgical History Past Surgical History: Yes HEENT: Cataracts - Present Medications Home Medications: Ambulatory Orders Medication Instructions Recorded Confirmed Aspirin [Alireza] 325 mg PO DAILYWM #30 tablet 10/16/17 11/07/18 Atorvastatin [Lipitor] 10 mg PO DAILY #30 tablet 10/16/17 11/07/18 Prazosin [Minipress] 1 mg PO QPM #30 capsule 10/16/17 11/07/18 Fluticasone [Flonase] 1 sprays BRITNEY DAILY 08/01/18 11/07/18 Losartan [Cozaar] 50 mg PO DAILY 08/01/18 11/07/18 Tamsulosin HCl [Flomax] 0.4 mg PO DAILY 08/01/18 11/07/18 hydroCHLOROthiazide 25 mg PO DAILY #30 tablet 08/01/18 11/07/18 [Hydrochlorothiazide] Azithromycin [Zithromax] 250 mg PO DAILY #4 tablet 11/07/18 - Allergies Allergies/Adverse Reactions: Allergies Allergy/AdvReac Type Severity Reaction Status Date / Time No Known Drug Allergies Allergy Verified 02/10/19 00:42 - Social History Does the pt smoke?: No Smoking Status: Never smoker Does the pt drink ETOH?: No Does the pt have substance abuse?: No - Immunizations Immunizations are current?: Yes - POLST Patient has POLST: No PD ED PE NORMAL - Vitals Vital signs reviewed: Yes - General General: Alert and oriented X 3, No acute distress, Well developed/nourished - HEENT HEENT: PERRL, EOMI, Moist mucous membranes - Neck Neck: Supple, no meningeal sign - Cardiac Cardiac: RRR, No murmur, No gallop, No rub - Respiratory Respiratory: No respiratory distress, Clear bilaterally - Abdomen Abdomen: Soft, Non tender - Derm Derm: Normal color, Warm and dry - Extremities Extremities: Normal ROM s pain, No edema - Neuro Neuro: Alert and oriented X 3, 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 2-12 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, No motor deficit, Normal speech Eye Opening: Spontaneous Motor: Obeys Commands Verbal: Oriented GCS Score: 15 NIHSS - Level of Consciousness Level of consciousness: (0) Alert, Keenly responsive LOC Questions: (0) Answers both Q's correct LOC Commands: (0) Performs both correctly - Gaze Best Gaze: (0) Normal - Visual Visual: (0) No loss - Facial Palsy Facial Palsy: (0) Normal, symmetrical movement - Motor Arms (both separate) Motor Arm (right): (0) No drift Motor Arm (left): (0) No drift - Motor Legs (both separate) Motor Leg (right): (0) No drift Motor Leg (left): (0) No drift - Limb Ataxia Limb Ataxia: (0) Absent - Sensory Sensory: (1) [id number] loss (mild LUE decreased LTS) - Best Language Best Language: (0) No aphasia - Dysarthria Dysarthria: (0) Normal - Extinction and Inattention (formally neg Extinction and inattention: (0) No abnormality - Total Score/Results Total Score/Result: 1 Results - Vitals Vitals: Oxygen O2 Source [With Activity] Room air O2 Source [Without Activity] Room air O2 Source Room air - EKG (time done) No standard instances Rate: Rate (enter#) (60) Rhythm: NSR [place]: Normal Intervals: Normal [place] QRS: Normal Ischemia: Normal ST segments - Labs Labs: Laboratory Tests 02/10/19 02/10/19 02/10/19 00:45 00:45 00:45 WBC 7.1 RBC 4.82 Hgb 14.6 Hct 43.6 MCV 90.5 MCH 30.4 MCHC 33.6 RDW 14.3 Plt Count 245 MPV 8.5 Neut # (Auto) 4.3 Lymph # (Auto) 2.1 [place] # (Auto) 0.4 Eos # (Auto) 0.3 Baso # (Auto) 0.0 Absolute Nucleated RBC 0.00 Nucleated RBC % 0.0 Sodium 139 Potassium 3.3 L Chloride 103 Carbon Dioxide 26 Anion Gap 10.0 BUN 32 H Creatinine 1.5 H Estimated GFR (MDRD) 47 L Glucose 139 H Calcium 8.9 Troponin I < 0.04 - Rads (name of study) CT head Radiology: Prelim report reviewed, See rad report PD MEDICAL DECISION MAKING - ED course Complexity details: reviewed old records, reviewed results, re-evaluated patient, considered differential, d/w patient Departure - Departure Disposition: 01 Home, Self Care Clinical Impression: Paresthesia Condition: Good Instructions: ED Insufficiency Renal, ED Paraesthesias Follow-Up: Eddi Gilmore PA-C [Primary Care Provider] - Discharge Date/Time: 02/10/19 03:30
[2019-02-10 01:17] LABS: BASOPHILS % (AUTO) 0.5 %; EOSINOPHILS # (AUTO) 0.3 10^3/uL (0.0-0.7); EOSINOPHILS % (AUTO) 3.6 %; HGB - HEMOGLOBIN 14.6 g/dL (14.0-18.0); LYMPHOCYTES # (AUTO) 2.1 10^3/uL (1.5-3.5); LYMPHOCYTES % (AUTO) 29.5 %; MEAN CORPUSCULAR HEMOGLOBIN 30.4 pg (27.0-31.0); MEAN CORPUSCULAR HGB CONC 33.6 g/dL (32.0-36.0); MEAN CORPUSCULAR VOLUME 90.5 fL (80.0-94.0); MEAN PLATELET VOLUME 8.5 fL (7.4-11.4); MONOCYTES # (AUTO) 0.4 10^3/uL (0.0-1.0); MONOCYTES % (AUTO) 5.9 %; NEUTROPHILS # (AUTO) 4.3 10^3/uL (1.5-6.6); NEUTROPHILS % (AUTO) 60.5 %; PLT - PLATELET COUNT 245 10^3/uL (130-450); RED BLOOD COUNT 4.82 10^6/uL (4.70-6.10); RED CELL DISTRIBUTION WIDTH 14.3 % (12.0-15.0); WHITE BLOOD COUNT 7.1 x10^3/uL (4.8-10.8)
[2019-02-10 01:20] LABS: CALCIUM 8.9 mg/dL (8.5-10.3); CREATININE 1.5 mg/dL (0.6-1.2)
--- NOTE | 2019-02-10 01:27 | CT Report ---
Reason: numbness/paresthesias Procedure Date: 02/10/2019 Accession Number: [id number] / [id number] Procedure: CT - Head W/O Stroke Protocol CPT Code: FULL RESULT: EXAM: CT HEAD EXAM DATE: 02/10/2019 01:17 AM. CLINICAL HISTORY: Numbness/paresthesias. COMPARISON: None. TECHNIQUE: Multiaxial CT images were obtained from the foramen magnum to the vertex. Reformats: Sagittal and coronal. IV contrast: None. In accordance with CT protocol optimization, one or more of the following dose reduction techniques were utilized for this exam: automated exposure control, adjustment of mA and/or KV based on patient size, or use of iterative reconstructive technique. FINDINGS: Parenchyma: No intraparenchymal hemorrhage. No evidence of mass, midline shift, or CT findings of acute infarction. Triplett-white differentiation is distinct. Moderate nonspecific white matter hypodensity, likely small vessel ischemic. Extraaxial Spaces: Normal for age. No subdural or epidural collections identified. Ventricles: Normal in size and position. Sinuses and Orbits: Imaged paranasal sinuses, orbits, and mastoids show no significant abnormality. Bones: No evidence of fracture or calvarial defect. Other: None. IMPRESSION: No acute intracranial process. ASPECTS 10 bilaterally RADIA The critical test notification system was initiated by Dr. Efren Slater at 01:23 AM on 02/10/2019. The above critical test findings were discussed with Yovany Fulton by Dr. Efren Slater at 01:25 AM on 02/10/2019.
[2019-02-10 03:03] VITALS: BP 131/88
== END 2019-02-10 03:30 | disposition home or self-care (01) ==
LOC: ED 00:28
DX: R20.2 Paresthesia of skin (principal); I10 Essential (primary) hypertension; E78.00 Pure hypercholesterolemia, unspecified; Z86.73 Personal history of transient ischemic attack (TIA), and cerebral infarction without residual deficits; Z79.82 Long term (current) use of aspirin
CPT/HCPCS: 36415; 70450; 80048; 84484; 85025; 93005; 99283; 99284

== ENCOUNTER 2019-02-15 08:00 | Outpatient (CLI) | payer BC ==
[2019-02-15 13:02] LABS: HB2 TOTAL 16.4 g/dL; HEMOGLOBIN A1C 0.62 g/dL; HEMOGLOBIN A1C % 5.6 % (4.6-6.2)
[2019-02-15 13:07] LABS: BUN - BLOOD UREA NITROGEN 23 mg/dL (6-20); CARBON DIOXIDE - CO2 30 mmol/L (21-32); CHLORIDE 100 mmol/L (101-111); CHOL/HDL RATIO 3.8 (<5.0); CHOLESTEROL 148 mg/dL; CREATININE 1.2 mg/dL (0.6-1.2); GFR - MDRD 61 (>89); GLUCOSE 94 mg/dL (70-100); HDL CHOLESTEROL 39 mg/dL; LDL CHOLESTEROL,CALCULATED 81 mg/dL; LDL/HDL RATIO 2.1 (<3.6); SODIUM 139 mmol/L (135-145); VLDL CHOLESTEROL 28 mg/dL
== END 2019-02-15 23:59 | disposition home or self-care (01) ==
LOC: LAB.N 08:00
PROVIDERS: ATTEND Physician Assistant Medical
DX: R73.9 Hyperglycemia, unspecified (principal); E78.1 Pure hyperglyceridemia; E87.6 Hypokalemia
CPT/HCPCS: 36415; 80048; 80061; 83036; 83721; 84443

== ENCOUNTER 2019-03-17 08:00 | Outpatient (CLI) | payer BC ==
[2019-03-17 13:18] LABS: CALCIUM 8.9 mg/dL (8.5-10.3); CREATININE 1.1 mg/dL (0.6-1.2)
== END 2019-03-17 23:59 | disposition home or self-care (01) ==
LOC: LAB.N 08:00
PROVIDERS: ATTEND Physician Assistant Medical
DX: E87.6 Hypokalemia (principal)
CPT/HCPCS: 36415; 80048

== ENCOUNTER 2019-09-28 08:39 | Outpatient (CLI) | payer BC ==
[2019-09-28 12:26] LABS: CALCIUM 8.7 mg/dL (8.5-10.3)
[2019-09-28 12:49] LABS: ALBUMIN 4.1 g/dL (3.2-5.5); ALBUMIN/GLOBULIN RATIO 1.6 (1.0-2.2); BILIRUBIN,TOTAL 0.3 mg/dL (0.2-1.0); CREATININE 1.2 mg/dL (0.6-1.2); TOTAL PROTEIN 6.7 g/dL (6.7-8.2)
== END 2019-09-28 23:59 | disposition home or self-care (01) ==
LOC: LAB.N 08:39
PROVIDERS: ATTEND Physician Assistant Medical
DX: E87.6 Hypokalemia (principal); N40.1 Benign prostatic hyperplasia with lower urinary tract symptoms; N13.8 Other obstructive and reflux uropathy
CPT/HCPCS: 36415; 80053

== ENCOUNTER 2019-12-22 05:05 | Day surgery (SDC) | payer BC ==
[2019-12-22] MEDS ORDERED: KETOROLAC 30 MG/ML VIAL IVP STA (05:34)
[2019-12-22] MEDS ORDERED: ONDANSETRON 4 MG/2 ML VIAL IVP STA (05:34)
--- NOTE | 2019-12-22 05:37 | ED Physician Documentation ---
PD HPI ABD PAIN - Stated complaint Stated Complaint: AB PX - Chief complaint Chief Complaint: Abd Pain - History obtained from History obtained from: Patient - History of Present Illness Timing - onset: Enter time (299), Today Timing - duration: Hours Timing - details: Abrupt onset, Still present Quality: Sharp, Pain Location: RUQ Radiation: Right flank Improved by: Other (nothing) Worsened by: Other (nothing) Associated symptoms: Nausea. No: Vomiting, Diarrhea, Constipation Similar symptoms before: Has not had sx before Recently seen: Not recently seen - Additional information Additional information: 64-year-old male with history of hypertension and TIA has developed acute right flank pain at about 3 AM this morning. He states he feels the pain is radiating around to his front and he is worried about appendicitis. He feels that he has some tenderness in the right lower quadrant. He denies any change in his pain with ambulation or moving about. He denies any fever he has had some nausea. He has not had this symptom previously. Review of Systems Constitutional: denies: Fever, Chills Eyes: denies: Decreased vision Ears: denies: Ear pain Nose: denies: Rhinorrhea / runny nose, Congestion Throat: denies: Sore throat Cardiac: denies: Chest pain / pressure, Palpitations Respiratory: denies: Dyspnea, Cough GI: reports: Abdominal Pain, Nausea. denies: Vomiting, Constipation, Diarrhea : denies: Dysuria, Frequency Skin: denies: Rash Musculoskeletal: reports: Back pain. denies: Neck pain, Extremity pain PD PAST MEDICAL HISTORY - Past Medical History Cardiovascular: Hypertension, High cholesterol, Other Respiratory: None Neuro: CVA Endocrine/Autoimmune: None GI: None : Benign prostate hypertrophy, Incontinence, Frequency HEENT: None Psych: None Musculoskeletal: None Derm: None - Past Surgical History Past Surgical History: Yes HEENT: Cataracts - Present Medications Home Medications: Ambulatory Orders Medication Instructions Recorded Confirmed Aspirin [Alireza] 325 mg PO DAILYWM #30 tablet 10/16/17 12/22/19 Atorvastatin [Lipitor] 10 mg PO DAILY #30 tablet 10/16/17 12/22/19 Prazosin [Minipress] 1 mg PO QPM #30 capsule 10/16/17 12/22/19 Fluticasone [Flonase] 1 sprays BRITNEY DAILY 08/01/18 12/22/19 Losartan [Cozaar] 50 mg PO DAILY 08/01/18 12/22/19 Tamsulosin HCl [Flomax] 0.4 mg PO DAILY 08/01/18 12/22/19 hydroCHLOROthiazide 25 mg PO DAILY #30 tablet 08/01/18 12/22/19 [Hydrochlorothiazide] Ondansetron Odt [Zofran] 4 mg TL Q6H PRN #10 tablet 12/22/19 oxyCODONE [Roxicodone] 5 mg PO Q6H PRN #10 tablet 12/22/19 - Allergies Allergies/Adverse Reactions: Allergies Allergy/AdvReac Type Severity Reaction Status Date / Time No Known Drug Allergies Allergy Verified 02/10/19 00:42 - Social History Does the pt smoke?: No Smoking Status: Never smoker Does the pt drink ETOH?: No Does the pt have substance abuse?: No - Immunizations Immunizations are current?: Yes - POLST Patient has POLST: No PD ED PE NORMAL - Vitals Vital signs reviewed: Yes (hypertensive mild) - General General: No acute distress, Well developed/nourished, Other (pale appearing ) - HEENT HEENT: Atraumatic, PERRL, EOMI - Neck Neck: Supple, no meningeal sign - Cardiac Cardiac: RRR, No murmur - Respiratory Respiratory: No respiratory distress, Clear bilaterally - Abdomen Abdomen: Normal bowel sounds, Soft, Non distended, No organomegaly, Other (mild right lower quadrant pain to a specific area without garding, rebound or referred pain) - Back Back: No CVA TTP, No spinal TTP - Derm Derm: Normal color, Warm and dry, No rash - Extremities Extremities: No deformity, No edema - Neuro 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: 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, No motor deficit, No sensory deficit, Normal speech Eye Opening: Spontaneous Motor: Obeys Commands Verbal: Oriented GCS Score: 15 - Psych Psych: Normal mood, Normal affect Results - Vitals Vitals: Vital Signs - 24 hr 12/22/19 12/22/19 12/22/19 05:10 08:07 08:52 Temperature 97.8 C H 37.1 C Heart Rate 54 L 81 Respiratory 18 16 Rate Blood Pressure 136/94 H 147/89 H O2 Saturation 97 98 12/22/19 12/22/19 12/22/19 10:15 11:16 12:19 Temperature 37.4 C Heart Rate 76 99 97 Respiratory 16 16 16 Rate Blood Pressure 144/80 H 150/93 H 149/97 H O2 Saturation 99 99 97 12/22/19 12/22/19 12/22/19 14:39 14:44 14:49 Temperature 36.1 C L 37 C 37 C Heart Rate 98 86 78 Respiratory 17 12 10 L Rate Blood Pressure 145/85 H 134/86 H 137/85 H O2 Saturation 99 100 100 12/22/19 12/22/19 12/22/19 14:54 15:06 15:18 Temperature 37.4 C 37.2 C 37.1 C Heart Rate 83 65 63 Respiratory 13 11 L 14 Rate Blood Pressure 125/83 H 132/53 H 126/67 O2 Saturation 96 98 99 Oxygen O2 Source [] Room air O2 Source [] Room air O2 Source Room air - Labs Labs: Laboratory Tests 12/22/19 12/22/19 12/22/19 05:40 05:40 07:35 WBC 9.4 RBC 4.69 L Hgb 14.8 Hct 42.7 MCV 91.0 MCH 31.6 H MCHC 34.7 RDW 14.4 Plt Count 221 MPV 9.8 Neut # (Auto) 7.2 H Lymph # (Auto) 1.3 L [place] # (Auto) 0.6 Eos # (Auto) 0.2 Baso # (Auto) 0.0 Absolute Nucleated RBC 0.00 Nucleated RBC % 0.0 Sodium 138 Potassium 3.1 L Chloride 103 Carbon Dioxide 27 Anion Gap 8.0 BUN 26 H Creatinine 1.1 Estimated GFR (MDRD) 67 L Glucose 145 H Calcium 8.9 Total Bilirubin 0.9 AST 34 ALT 54 Alkaline Phosphatase 79 Total Protein 7.0 Albumin 4.3 Globulin 2.7 Albumin/Globulin Ratio 1.6 Lipase 38 Urine Color YELLOW Urine Clarity CLEAR Urine pH 7.0 Ur Specific [place] 1.020 Urine Protein NEGATIVE Urine Glucose (UA) NEGATIVE Urine Ketones NEGATIVE Urine Occult Blood NEGATIVE Urine Nitrite NEGATIVE Urine Bilirubin NEGATIVE Urine Urobilinogen 0.2 (NORMAL) Ur Leukocyte Esterase NEGATIVE Ur Microscopic Review NOT INDICATED Urine Culture Comments NOT INDICATED - Rads (name of study) CT ab/pel w/o Radiology: Prelim report reviewed (Impression: No evidence of right nephrolithiasis. 1 mm nonobstructing left renal calculus. Dilated appendix, with an appendicolith at the orifice and mild surrounding inflammation, compatible with acute appendicitis.), EMP read indepedently, See rad report Procedures - Bedside sono Bedside sono by EMP: With use of bedside ultrasound the right kidney is imaged it is sonographically nontender there is evidence of hydronephrosis. (later confirmed to be cyst in kidney) PD MEDICAL DECISION MAKING - ED course Complexity details: reviewed old records, reviewed results, re-evaluated patient, considered differential, d/w patient ED course: 64-year-old male with acute right flank pain has hydronephrosis on bedside ultrasound examination. He is administered a liter of saline given 30 mg of Tor adol 4 mg of Zofran and a CT scan of the abdomen pelvis is obtained. CT shows no evidence of nephrolithiasis, but evidence of acute appendicitis. The appendix is enlarged elongated and curled hurting the patient exactly where he has tenderness on his abdomen Departure - Departure Disposition: ED Transfer to [facility] Clinical Impression: Appendicitis Qualifiers: Appendicitis type: acute appendicitis Acute appendicitis type: with localized peritonitis Appendicitis gangrene presence: without gangrene Appendicitis perforation presence: without perforation Appendicitis abscess presence: without abscess Qualified Code(s): K35.30 - Acute appendicitis with localized peritonitis, without perforation or gangrene Condition: Stable Discharge Date/Time: 12/22/19 12:10
[2019-12-22 05:46] LABS: BASOPHILS % (AUTO) 0.4 %; EOSINOPHILS # (AUTO) 0.2 10^3/uL (0.0-0.7); EOSINOPHILS % (AUTO) 2.1 %; HGB - HEMOGLOBIN 14.8 g/dL (14.0-18.0); LYMPHOCYTES # (AUTO) 1.3 10^3/uL (1.5-3.5); LYMPHOCYTES % (AUTO) 13.3 %; MEAN CORPUSCULAR HEMOGLOBIN 31.6 pg (27.0-31.0); MEAN CORPUSCULAR HGB CONC 34.7 g/dL (32.0-36.0); MEAN PLATELET VOLUME 9.8 fL (7.4-11.4); MONOCYTES # (AUTO) 0.6 10^3/uL (0.0-1.0); MONOCYTES % (AUTO) 6.7 %; NEUTROPHILS # (AUTO) 7.2 10^3/uL (1.5-6.6); NEUTROPHILS % (AUTO) 77.1 %; PLT - PLATELET COUNT 221 10^3/uL (130-450); RED BLOOD COUNT 4.69 10^6/uL (4.70-6.10); RED CELL DISTRIBUTION WIDTH 14.4 % (12.0-15.0); WHITE BLOOD COUNT 9.4 x10^3/uL (4.8-10.8)
[2019-12-22] MEDS: SODIUM CHLORIDE 0.9% 1,000 ML IV ONE ×2 (05:54→06:39)
[2019-12-22 06:01] LABS: ALBUMIN 4.3 g/dL (3.2-5.5); ALBUMIN/GLOBULIN RATIO 1.6 (1.0-2.2); BILIRUBIN,TOTAL 0.9 mg/dL (0.2-1.0); CALCIUM 8.9 mg/dL (8.5-10.3); CREATININE 1.1 mg/dL (0.6-1.2)
[2019-12-22] MEDS ORDERED: POTASSIUM CHLOR 10 MEQ/100 ML 10 MEQ/100 ML BAG IV ONE (06:05)
--- NOTE | 2019-12-22 06:27 | CT Report ---
Reason: right flank pain Procedure Date: 12/22/2019 Accession Number: [id number] / [id number] Procedure: CT - Abdomen/Pelvis WO CPT Code: Final Report FULL RESULT: EXAM: CT ABDOMEN AND PELVIS (CT KUB) EXAM DATE: 12/22/2019 06:02 AM. CLINICAL HISTORY: Right flank pain. COMPARISONS: None. TECHNIQUE: Routine axial helical CT imaging was performed through the abdomen and pelvis without IV contrast. Reconstructions: Coronal and sagittal. In accordance with CT protocol optimization, one or more of the following dose reduction techniques were utilized for this exam: automated exposure control, adjustment of mA and/or KV based on patient size, or use of iterative reconstructive technique. FINDINGS: Lung Bases: Unremarkable. Right Kidney/Ureter: Cortical cysts. No nephrolithiasis or hydronephrosis. Left Kidney/Ureter: Cortical cysts. 1 mm nonobstructing calculus in the lower pole. No hydronephrosis or hydroureter. Other Solid Organs: Noncontrast images of the solid organs are grossly unremarkable. Gallbladder/Bile Ducts: Unremarkable. Peritoneal Cavity: Dilated appendix, measuring 11 mm, with an appendicolith at the orifice mild surrounding inflammation, compatible with acute appendicitis. No bowel obstruction or perforation. No abscess formation. Pelvic Organs: No bladder stones or wall thickening. Noncontrast images of the visualized pelvic organs are unremarkable. Vasculature: Unremarkable. Other: None. IMPRESSION: No evidence of right nephrolithiasis. 1 mm nonobstructing left renal calculus. Dilated appendix, with an appendicolith at the orifice and mild surrounding inflammation, compatible with acute appendicitis. RADIA
[2019-12-22] MEDS ORDERED: AMPICILLIN/SULBACTAM 1.5 GM in SODIUM CHLORIDE 0.9% MINIBAG 100 ML IV STA (06:40)
[2019-12-22] MEDS ORDERED: SODIUM CHLORIDE 0.9% 1,000 ML IV ONE (06:41)
[2019-12-22 07:41] LABS: BILIRUBIN,URINE NEGATIVE (NEGATIVE); GLUCOSE, URINE (UA) NEGATIVE (NEGATIVE); KETONES,URINE (UA) NEGATIVE (NEGATIVE); LEUKOCYTE ESTERASE, URINE NEGATIVE (NEGATIVE); NITRITE,URINE NEGATIVE (NEGATIVE); OCCULT BLOOD,URINE NEGATIVE (NEGATIVE); PROTEIN,URINE NEGATIVE (NEGATIVE); UROBILINOGEN,URINE 0.2 (NORMAL) E.U./dL (NORMAL)
[2019-12-22 07:44] LABS: CLARITY,URINE CLEAR (CLEAR)
[2019-12-22] MEDS ORDERED: ROCURONIUM 50 MG/5 ML VIAL IVP ONE (07:53)
[2019-12-22] MEDS ORDERED: DEXAMETHASONE 4 MG/ML VIAL IVP ONE (07:53)
[2019-12-22] MEDS ORDERED: PROPOFOL 200 MG/20 ML VIAL IVP ONE (07:53)
[2019-12-22] MEDS ORDERED: NEOSTIGMINE 1 MG/1 ML 10 ML MDV IVP ONE (07:53)
[2019-12-22] MEDS ORDERED: fentaNYL 100 MCG/2 ML VIAL IVP ONE (07:53)
[2019-12-22] MEDS ORDERED: GLYCOPYRROLATE 1 MG/5 ML VIAL IVP ONE (07:53)
--- NOTE | 2019-12-22 08:35 | HISTORY & PHYSICAL EXAMINATION ---
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 He experienced acute onset of right lower quadrant pain this morning at 3AM. No associated fever, chills or diarrhea. Report some nausea at home. Was worried about appendicitis and so presented to the ED. Was evaluated there and found to have acute appendicitis. I have been consulted for definitive management. PMH/PSH - Past Medical History Cardiovascular: positive: Hypertension, High cholesterol, Other Respiratory: positive: None Neuro: positive: CVA Endocrine/Autoimmune: positive: None GI: positive: None : positive: Benign prostate hypertrophy, Incontinence, Frequency HEENT: positive: None Psych: positive: None Musculoskeletal: positive: None Derm: positive: None MRSA Hx?: No - Past Surgical History HEENT: positive: Cataracts Social & Family Hx - Social History Does the pt smoke?: No Smoking Status: Never smoker Does the pt drink ETOH?: No Does the pt have substance abuse?: No - POLST Patient has POLST: No Meds/Allgy - Home Medications Home Medications: Ambulatory Orders Medication Instructions Recorded Confirmed Aspirin [Alireza] 325 mg PO DAILYWM #30 tablet 10/16/17 12/22/19 Atorvastatin [Lipitor] 10 mg PO DAILY #30 tablet 10/16/17 12/22/19 Prazosin [Minipress] 1 mg PO QPM #30 capsule 10/16/17 12/22/19 Fluticasone [Flonase] 1 sprays BRITNEY DAILY 08/01/18 12/22/19 Losartan [Cozaar] 50 mg PO DAILY 08/01/18 12/22/19 Tamsulosin HCl [Flomax] 0.4 mg PO DAILY 08/01/18 12/22/19 hydroCHLOROthiazide 25 mg PO DAILY #30 tablet 08/01/18 12/22/19 [Hydrochlorothiazide] - Allergies Allergies/Adverse Reactions: Allergies Allergy/AdvReac Type Severity Reaction Status Date / Time No Known Drug Allergies Allergy Verified 02/10/19 00:42 Review of Systems - Constitutional Constitutional: reports: Poor appetite. denies: Fatigue, Fever, Chills, Malaise, Weakness - Eyes Eyes: denies: Pain, Irritation, Amaurosis, Blurred vision - Ears, Nose & Throat Ears, Nose & Throat: denies: Tinnitus, Vertigo - Cardiovascular Cariovascular: denies: Irregular heart rate, Palpitations - Respiratory Respiratory: denies: Cough, Sputum production, Wheezing - Gastrointestinal Gastrointestinal: reports: Abdominal pain, Nausea. denies: Vomiting - Genitourinary Genitourinary: denies: Dysuria, Frequency - Musculoskeletal Musculoskeletal: denies: Muscle pain Exam - Vital Signs Reviewed Vital Signs: Yes Vital Signs: Vital Signs x48h Temp Pulse Resp BP Pulse Ox 12/22/19 08:07 37.1 C 12/22/19 05:10 97.8 C H 54 L 18 136/94 H 97 - Physical Exam General Appearance: positive: Alert, Mild distress Eyes Bilateral: positive: Normal inspection, PERRL, EOMI ENT: positive: ENT inspection nml, Pharynx nml, No signs of dehydration Neck: positive: Nml inspection, Thyroid nml, No JVD, Trachea midline Respiratory: positive: Chest non-tender, No respiratory distress Cardiovascular: positive: Regular rate & rhythm, No murmur Abdomen: positive: Nml bowel sounds (Tender to palpation in the right lower quadrant), Tenderness Back: negative: CVA tenderness (R), CVA tenderness (L) Skin: positive: Color nml Extremities: positive: Non-tender Neurologic/Psychiatric: positive: Oriented x3 Results - Lab Results Fish Bones: 12/22/19 05:40 12/22/19 05:40 Other Lab Results: Lab Results x24hrs 12/22/19 12/22/19 12/22/19 Range/Units 07:35 05:40 05:40 WBC 9.4 (4.8-10.8) x10^3/uL RBC 4.69 L (4.70-6.10) 10^6/uL Hgb 14.8 (14.0-18.0) g/dL Hct 42.7 (42.0-52.0) % MCV 91.0 (80.0-94.0) fL MCH 31.6 H (27.0-31.0) pg MCHC 34.7 (32.0-36.0) g/dL RDW 14.4 (12.0-15.0) % Plt Count 221 (130-450) 10^3/uL MPV 9.8 (7.4-11.4) fL Neut # (Auto) 7.2 H (1.5-6.6) 10^3/uL Lymph # (Auto) 1.3 L (1.5-3.5) 10^3/uL [place] # (Auto) 0.6 (0.0-1.0) 10^3/uL Eos # (Auto) 0.2 (0.0-0.7) 10^3/uL Baso # (Auto) 0.0 (0.0-0.1) 10^3/uL Absolute Nucleated RBC 0.00 x10^3/uL Nucleated RBC % 0.0 /100WBC Sodium 138 (135-145) mmol/L Potassium 3.1 L (3.5-5.0) mmol/L Chloride 103 (101-111) mmol/L Carbon Dioxide 27 (21-32) mmol/L Anion Gap 8.0 (6-13) BUN 26 H (6-20) mg/dL Creatinine 1.1 (0.6-1.2) mg/dL Estimated GFR (MDRD) 67 L (>89) Glucose 145 H (70-100) mg/dL Calcium 8.9 (8.5-10.3) mg/dL Total Bilirubin 0.9 (0.2-1.0) mg/dL AST 34 (10-42) IU/L ALT 54 (10-60) IU/L Alkaline Phosphatase 79 (42-121) IU/L Total Protein 7.0 (6.7-8.2) g/dL Albumin 4.3 (3.2-5.5) g/dL Globulin 2.7 (2.1-4.2) g/dL Albumin/Globulin Ratio 1.6 (1.0-2.2) Lipase 38 (22-51) U/L Urine Color YELLOW Urine Clarity CLEAR (CLEAR) Urine pH 7.0 (5.0-7.5) PH Ur Specific [place] 1.020 (1.002-1.030) Urine Protein NEGATIVE (NEGATIVE) mg/dL Urine Glucose (UA) NEGATIVE (NEGATIVE) mg/dL Urine Ketones NEGATIVE (NEGATIVE) mg/dL Urine Occult Blood NEGATIVE (NEGATIVE) Urine Nitrite NEGATIVE (NEGATIVE) Urine Bilirubin NEGATIVE (NEGATIVE) Urine Urobilinogen 0.2 (NORMAL) (NORMAL) E.U./dL Ur Leukocyte Esterase NEGATIVE (NEGATIVE) Ur Microscopic Review NOT INDICATED Urine Culture Comments NOT INDICATED - Diagnostic Imaging Results Diagnostic Imaging Results Comments: CT shows acute appendicitis and a 1 mm nonobstructing left renal calculus - EKG Results EKG Interpreted Independently: No Impression/Plan - Problem List Problem List: Acute appendicitis I have recommended Laparoscopic appendectomy. We have discussed the risks and benefits of the operation and the patient has expressed understanding and a desire to proceed.
--- NOTE | 2019-12-22 10:38 | ANESTHESIA ---
Pre-Anesthesia VS, & Labs - Diagnosis acute appendictis - Procedure lap appendectomy Vital Signs: Temp Pulse Resp BP Pulse Ox 37.1 C 81 16 147/89 H 98 12/22/19 08:07 12/22/19 08:52 12/22/19 08:52 12/22/19 08:52 12/22/19 08:52 Height 5 ft 5 in Weight (kg) 73.482 kg Body Mass Index 26.9 - Lab Results Current Lab Results: Laboratory Tests 12/22/19 05:40: Sodium 138, Potassium 3.1 L, Chloride 103, Carbon Dioxide 27, Anion Gap 8.0, BUN 26 H, Creatinine 1.1, Estimated GFR (MDRD) 67 L, Glucose 145 H, Calcium 8.9, Total Bilirubin 0.9, AST 34, ALT 54, Alkaline Phosphatase 79, Total Protein 7.0, Albumin 4.3, Globulin 2.7, Albumin/Globulin Ratio 1.6, Lipase 38 12/22/19 05:40: WBC 9.4, RBC 4.69 L, Hgb 14.8, Hct 42.7, MCV 91.0, MCH 31.6 H, MCHC 34.7, RDW 14.4, Plt Count 221, MPV 9.8, Neut # (Auto) 7.2 H, Lymph # (Auto) 1.3 L, [place] # (Auto) 0.6, Eos # (Auto) 0.2, Baso # (Auto) 0.0, Absolute Nucleated RBC 0.00, Nucleated RBC % 0.0 Fish Bones: 12/22/19 05:40 12/22/19 05:40 Home Medications and Allergies Active Medications Sodium Chloride (Normal Saline 0.9%) 1,000 mls @ 150 mls/hr IV .Q6H40M ONE Stop: 12/22/19 13:20 Last Admin: 12/22/19 06:49 Dose: 150 mls/hr Fluticasone [Flonase] 1 sprays BRITNEY DAILY 08/01/18 Losartan [Cozaar] 50 mg PO DAILY 08/01/18 Tamsulosin HCl [Flomax] 0.4 mg PO DAILY 08/01/18 Allergies/Adverse Reactions: Allergies Allergy/AdvReac Type Severity Reaction Status Date / Time No Known Drug Allergies Allergy Verified 02/10/19 00:42 Anes History & Medical History - Anesthetic History Anesthesia Complications: reports: No previous complications Family history of Anesthesia Complications: Denies Family history of Malignant Hyperthermia: Denies - Medical History Cardiovascular: reports: Hypertension, High cholesterol, Other (Mild CHF. Plays [employer] ball, works out 2 -3 times a week. Denies any chest pain pain/pressure. Denies NH's) Pulmonary: reports: None Gastrointestinal: reports: None Urinary: reports: Benign prostate hypertrophy, Incontinence, Frequency Neuro: reports: CVA (2017 denies any residual symptoms/weekness from the stroke) Musculoskeletal: reports: None Endocrine/Autoimmune: reports: None Blood Disorders: reports: None Skin: reports: None Smoking Status: Never smoker Psychosocial: reports: No issues indicated - Surgical History Eyes Ears Nose Throat (EENT): Cataracts Exam General: Alert, Oriented x3, Cooperative, No acute distress Dental: WNL Mouth Openin Fingerbreadth Mallampati classification: III Thyromental Distance: less than 4 cm Respiratory: Lungs clear, Normal breath sounds, No respiratory distress, No accessory muscle use Cardiovascular: Regular rate, Normal S1, Normal S2, No murmurs Abdomen: Normal bowel sounds, Soft, No hepatospenomegaly, No masses Extremities: No clubbing, No cyanosis, No edema, Normal pulses, No tenderness/swelling Neurological: Normal gait, Normal speech, Strength at 5/5 X4 ext, Normal tone, Sensation intact, Cranial nerves 3-12 NL, Reflexes 2+ Mental/Cognitive Status: Alert/Oriented X3, Normal for patient Cognitive Status: Within normal limits Plan Anesthesia Type: General Consent for Procedure(s) Verified and Reviewed: Yes Code Status: Attempt Resuscitation ASA classification: 3-Severe systemic disease Is this case an emergency?: No
[2019-12-22] MEDS ORDERED: LACTATED RINGERS 1,000 ML IV ONE ×2 (12:17→14:44)
[2019-12-22] MEDS ORDERED: LIDOCAINE 1%-EPI 1:100000 20 ML MDV ONE (13:01)
[2019-12-22] MEDS ORDERED: BUPIVACAINE 0.5% PF 30 ML VIAL ONE (13:02)
[2019-12-22] MEDS ORDERED: BUPIVACAINE 0.5% PF 30 ML VIAL INFIL ONE (14:23)
[2019-12-22] MEDS ORDERED: LIDOCAINE 1%-EPI 1:100000 20 ML MDV SUBQ ONE (14:23)
[2019-12-22] MEDS ORDERED: SUGAMMADEX 200 MG/2 ML VIAL IVP ONE (14:30)
[2019-12-22] MEDS ORDERED: ACETAMINOPHEN 325 MG TABLET PO PRN (14:31)
[2019-12-22] MEDS ORDERED: IBUPROFEN 600 MG TABLET PO PRN (14:31)
[2019-12-22] MEDS ORDERED: ONDANSETRON 4 MG/2 ML VIAL IVP PRN (14:31)
[2019-12-22] MEDS ORDERED: oxyCODONE 5 MG TABLET PO PRN (14:31)
--- NOTE | 2019-12-22 14:31 | OPERATIVE REPORT ---
Operative Report - General Procedure Date: 12/22/19 Planned Procedure: Laparoscopic Appendectomy Pre-Op Diagnosis: Acute appendicitis Procedure Performed: Laparoscopic appendectomy Post Op Diagnosis: Acute appendicitis - Procedure Note Primary Surgeon: Whitley Anesthesia Provider: KI Rico Anesthesia Technique: General ET tube, Local Pathology: Appendix to pathology in formalin Estimated Blood Loss (mL): 10 Findings: Acute appendicitis without obvious rupture Complications: None apparent - Other Other Information/Narrative: After obtaining informed consent, the patient is brought to the operating room and placed in the supine position on the operating table. Following successful induction of general endotracheal anesthesia, appropriate padding of all bony prominences, and placement of appropriate monitors, the abdomen was prepped and draped in the standard surgical fashion. A timeout was held per scope protocol. All elements of the surgical safety checklist were followed before, during, and after the procedure. Following infiltration with local anesthetic to create a field block, an incision was created inferior to the umbilicus and carried down through the skin and subcutaneous tissue to reveal the fascia below. 2-0 Vicryl retention sutures were placed on either side of the midline and the abdomen was entered under direct vision using a 15 blade scalpel. A 10 mm blunt Blue balloon trocar was placed in the abdominal cavity and it was insufflated to 15 mmHg pressure. The patient was placed in Trendelenburg position with the left side rotated toward the floor. The camera was placed in the abdominal cavity and we immediately visualized the cecum in the right lower quadrant. It was rotated medially to reveal a somewhat dilated and turgid appendix. The appendix was grasped and elevated revealing its attachment to the cecum. A window was created in the mesoappendix at this location. A laparoscopic stapling device was used to ligate the appendix and liberated from its attachment to the cecum. An additional load of the device were used to divide its mesentery.The appendix was placed in an Endo Catch bag and removed via the umbilical port with a camera in the epigastric position. The camera was replaced in the operative site examined. It was irrigated with warm saline solution and aspirated free of all fluid and particulate matter. The table was flattened and the abdomen evaluated once again. The trochars were removed under direct vision and abdomen was desufflated. The umbilical incision was closed with interrupted Vicryl suture and Monocryl stitches were placed in the skin. All sponge, needles, and instrument counts were correct at the conclusion of the case. The patient was allowed to wake from anesthesia without difficulty and taken to the postanesthesia care unit in good condition.
[2019-12-22 15:19] VITALS: BP 126/67
== END 2019-12-22 07:53 | disposition home or self-care (01) ==
LOC: ED 05:05 → SDS 07:52
PROVIDERS: ATTEND Surgery
PROC: 0DTJ4ZZ Resection of Appendix, Percutaneous Endoscopic Approach (ICD-10-PCS; principal; 2019-12-22 14:15)
DX: K35.80 Unspecified acute appendicitis (principal); I10 Essential (primary) hypertension; E78.00 Pure hypercholesterolemia, unspecified; N40.1 Benign prostatic hyperplasia with lower urinary tract symptoms; R35.0 Frequency of micturition; R32 Unspecified urinary incontinence; Z86.73 Personal history of transient ischemic attack (TIA), and cerebral infarction without residual deficits; Z79.82 Long term (current) use of aspirin
CPT/HCPCS: 36415; 44970; 74176; 80053; 81003; 83690; 85025; 96361; 96365; 96375; 99284; 99285; J7120; 81001; 87086

== ENCOUNTER 2020-08-16 08:58 | Observation (INO) | payer BC ==
[2020-08-16 09:34] LABS: BASOPHILS % (AUTO) 0.5 %; EOSINOPHILS # (AUTO) 0.3 10^3/uL (0.0-0.7); EOSINOPHILS % (AUTO) 5.2 %; HGB - HEMOGLOBIN 14.4 g/dL (14.0-18.0); LYMPHOCYTES # (AUTO) 1.5 10^3/uL (1.5-3.5); LYMPHOCYTES % (AUTO) 26.1 %; MEAN CORPUSCULAR VOLUME 91.2 fL (80.0-94.0); MEAN PLATELET VOLUME 9.5 fL (7.4-11.4); MONOCYTES # (AUTO) 0.6 10^3/uL (0.0-1.0); MONOCYTES % (AUTO) 10.7 %; NEUTROPHILS # (AUTO) 3.2 10^3/uL (1.5-6.6); NEUTROPHILS % (AUTO) 57.3 %; PLT - PLATELET COUNT 216 10^3/uL (130-450); RED BLOOD COUNT 4.65 10^6/uL (4.70-6.10); WHITE BLOOD COUNT 5.6 x10^3/uL (4.8-10.8)
[2020-08-16 09:41] LABS: PT - PROTHROMBIN TIME 11.1 secs (9.9-12.6)
[2020-08-16 09:42] LABS: BILIRUBIN,URINE NEGATIVE (NEGATIVE); GLUCOSE, URINE (UA) NEGATIVE (NEGATIVE); KETONES,URINE (UA) NEGATIVE (NEGATIVE); LEUKOCYTE ESTERASE, URINE SMALL (NEGATIVE); NITRITE,URINE NEGATIVE (NEGATIVE); OCCULT BLOOD,URINE SMALL (NEGATIVE); PROTEIN,URINE NEGATIVE (NEGATIVE); UROBILINOGEN,URINE 0.2 (NORMAL) E.U./dL (NORMAL)
--- NOTE | 2020-08-16 09:42 | ED Physician Documentation ---
History of Present Illness - Stated complaint Stated Complaint: LT SIDE NUMBNESS - Chief complaint Chief Complaint: Neuro - History obtained from History obtained from: Patient, Family - History of Present Illness Timing: Yesterday Pain level max: 0 Pain level now: 0 - Additonal information Additional information: 65-year-old male presents to the emergency department complaining of left-sided numbness for the past 24 hours. This started in the arm, then spread to the leg and the side of the face. He states that he has had trouble speaking. History of a thalamic stroke in the past. Has had similar symptoms with that. Symptoms have now persisted for 24 hours. Nothing makes it better or worse Review of Systems Ten Systems: 10 systems reviewed and negative Constitutional: denies: Fever, Chills Throat: denies: Sore throat Respiratory: denies: Cough GI: denies: Nausea, Vomiting, Diarrhea Skin: denies: Rash Musculoskeletal: denies: Neck pain, Back pain Neurologic: denies: Headache PD PAST MEDICAL HISTORY - Past Medical History Cardiovascular: Hypertension, High cholesterol, Other Respiratory: None Neuro: CVA Endocrine/Autoimmune: None GI: None : Benign prostate hypertrophy, Incontinence, Frequency HEENT: None Psych: None Musculoskeletal: None Derm: None - Past Surgical History Past Surgical History: Yes HEENT: Cataracts - Present Medications Home Medications: Ambulatory Orders Medication Instructions Recorded Confirmed Aspirin [Alireza] 325 mg PO DAILYWM #30 tablet 10/16/17 08/16/20 Atorvastatin [Lipitor] 10 mg PO DAILY #30 tablet 10/16/17 08/16/20 Prazosin [Minipress] 1 mg PO QPM #30 capsule 10/16/17 08/16/20 Fluticasone [Flonase] 1 sprays BRITNEY DAILY 08/01/18 08/16/20 Losartan [Cozaar] 50 mg PO DAILY 08/01/18 08/16/20 Tamsulosin HCl [Flomax] 0.4 mg PO DAILY 08/01/18 08/16/20 hydroCHLOROthiazide 25 mg PO DAILY #30 tablet 08/01/18 08/16/20 [Hydrochlorothiazide] Latanoprost 2 applic EACHEYE DAILY 08/16/20 08/16/20 - Allergies Allergies/Adverse Reactions: Allergies Allergy/AdvReac Type Severity Reaction Status Date / Time No Known Drug Allergies Allergy Verified 08/16/20 09:12 - Social History Does the pt smoke?: No Smoking Status: Never smoker Does the pt drink ETOH?: No Does the pt have substance abuse?: No - Immunizations Immunizations are current?: Yes - POLST Patient has POLST: No PD ED PE NORMAL - Vitals Vital signs reviewed: Yes - General General: Alert and oriented X 3, No acute distress - HEENT HEENT: Atraumatic, PERRL, EOMI, Moist mucous membranes - Neck Neck: Supple, no meningeal sign - Cardiac Cardiac: RRR - Respiratory Respiratory: No respiratory distress, Clear bilaterally - Abdomen Abdomen: Soft, Non tender, Non distended - Derm Derm: Warm and dry - Extremities Extremities: No edema, No calf tenderness / cord - Neuro Neuro: Alert and oriented X 3, No motor deficit - Psych Psych: Normal mood, Normal affect Results - Vitals Vitals: Vital Signs - 24 hr 08/16/20 08/16/20 08/16/20 09:06 09:31 10:29 Temperature 36.4 C L Heart Rate 98 76 70 Respiratory 16 13 17 Rate Blood Pressure 142/93 H 153/104 H 122/88 H O2 Saturation 97 97 97 08/16/20 08/16/20 08/16/20 11:01 11:04 11:37 Temperature Heart Rate 54 L 56 L 73 Respiratory 14 15 18 Rate Blood Pressure 123/82 H 129/82 H 132/79 H O2 Saturation 97 97 Oxygen O2 Source [With Activity] Room air O2 Source [Without Activity] Room air O2 Source Room air - EKG (time done) 0931 Rate: Rate (enter#) (58) Rhythm: NSR [place]: Normal Intervals: Wide QRS QRS: Normal Ischemia: Non specific changes - Labs Labs: Laboratory Tests 08/16/20 08/16/20 08/16/20 09:18 09:19 09:19 WBC 5.6 RBC 4.65 L Hgb 14.4 Hct 42.4 MCV 91.2 MCH 31.0 MCHC 34.0 RDW 14.0 Plt Count 216 MPV 9.5 Neut # (Auto) 3.2 Lymph # (Auto) 1.5 [place] # (Auto) 0.6 Eos # (Auto) 0.3 Baso # (Auto) 0.0 Absolute Nucleated RBC 0.00 Nucleated RBC % 0.0 PT INR APTT Sodium 141 Potassium 3.3 L Chloride 105 Carbon Dioxide 26 Anion Gap 10.0 BUN 28 H Creatinine 1.2 Estimated GFR (MDRD) 60 L Glucose 150 H POC Whole Bld Glucose Calcium 8.8 Total Bilirubin 0.9 AST 34 ALT 60 Alkaline Phosphatase 90 Total Protein 6.9 Albumin 4.0 Globulin 2.9 Albumin/Globulin Ratio 1.4 Lipase 40 Urine Color YELLOW Urine Clarity SL. CLOUDY Urine pH 7.0 Ur Specific [place] 1.020 Urine Protein NEGATIVE Urine Glucose (UA) NEGATIVE Urine Ketones NEGATIVE Urine Occult Blood SMALL H Urine Nitrite NEGATIVE Urine Bilirubin NEGATIVE Urine Urobilinogen 0.2 (NORMAL) Ur Leukocyte Esterase SMALL H Urine RBC 6-10 H Urine WBC 6-10 H Ur Squamous Epith Cells NONE SEEN Urine Bacteria Many H Ur Microscopic Review INDICATED Urine Culture Comments INDICATED 08/16/20 08/16/20 09:19 09:25 WBC RBC Hgb Hct MCV MCH MCHC RDW Plt Count MPV Neut # (Auto) Lymph # (Auto) [place] # (Auto) Eos # (Auto) Baso # (Auto) Absolute Nucleated RBC Nucleated RBC % PT 11.1 INR 1.0 APTT 27.7 Sodium Potassium Chloride Carbon Dioxide Anion Gap BUN Creatinine Estimated GFR (MDRD) Glucose POC Whole Bld Glucose 142 H Calcium Total Bilirubin AST ALT Alkaline Phosphatase Total Protein Albumin Globulin Albumin/Globulin Ratio Lipase Urine Color Urine Clarity Urine pH Ur Specific [place] Urine Protein Urine Glucose (UA) Urine Ketones Urine Occult Blood Urine Nitrite Urine Bilirubin Urine Urobilinogen Ur Leukocyte Esterase Urine RBC Urine WBC Ur Squamous Epith Cells Urine Bacteria Ur Microscopic Review Urine Culture Comments - Rads (name of study) ct angio head Radiology: Prelim report reviewed, EMP read contemporaneously, See rad report (no acute findings) ct angio neck Radiology: Prelim report reviewed, EMP read contemporaneously, See rad report (no acute findings) PD MEDICAL DECISION MAKING - ED course Complexity details: reviewed results, re-evaluated patient, considered differential, d/w patient, d/w family, d/w security consultant ED course: 65-year-old male with persistent neurological deficits for over 24 hours. Appears consistent with stroke. Has had a right thalamic stroke in the past. Found to have a UTI and we will treat him for this. He has not had a stroke work-up for several years. Discussed the case with Dr. Chau, hospitalist who accepts This document was made in part using voice recognition software. While efforts are made to proofread this document, sound alike and grammatical errors may occur. Departure - Departure Disposition: ED Place in Observation Clinical Impression: Dysarthria Stroke Qualifiers: CVA mechanism: unspecified Qualified Code(s): I63.9 - Cerebral infarction, unspecified Condition: Stable Discharge Date/Time: 08/16/20 13:29 NIHSS - Time Time: 09:28 - Level of Consciousness Level of consciousness: (0) Alert, Keenly responsive LOC Questions: (0) Answers both Q's correct LOC Commands: (0) Performs both correctly - Gaze Best Gaze: (0) Normal - Visual Visual: (0) No loss - Facial Palsy Facial Palsy: (1) Minor paralysis - Motor Arms (both separate) Motor Arm (right): (0) No drift Motor Arm (left): (0) No drift - Motor Legs (both separate) Motor Leg (right): (0) No drift Motor Leg (left): (0) No drift - Limb Ataxia Limb Ataxia: (0) Absent - Sensory Sensory: (1) [id number] loss - Best Language Best Language: (0) No aphasia - Dysarthria Dysarthria: (1) [id number] dysarthria - Extinction and Inattention (formally neg Extinction and inattention: (0) No abnormality - Total Score/Results Total Score/Result: 3
[2020-08-16 09:44] LABS: CLARITY,URINE SL. CLOUDY (CLEAR)
[2020-08-16 09:48] LABS: PARTIAL THROMBOPLASTIN TIME 27.7 secs (24.9-33.3)
[2020-08-16 09:49] LABS: ALBUMIN/GLOBULIN RATIO 1.4 (1.0-2.2); BILIRUBIN,TOTAL 0.9 mg/dL (0.2-1.0); CALCIUM 8.8 mg/dL (8.5-10.3); CREATININE 1.2 mg/dL (0.6-1.2); TOTAL PROTEIN 6.9 g/dL (6.7-8.2)
[2020-08-16 10:02] LABS: BACTERIA,URINE Many /HPF (None Seen); SQUAMOUS EPITHELIAL CELL,UR NONE SEEN (<= Few)
[2020-08-16] MEDS ORDERED: IOVERSOL 320 100 ML VIAL IVP ONE ×2 (10:14→19:26)
[2020-08-16] MEDS ORDERED: cefTRIAXone 1 GM VIAL IVP STA (10:54)
--- NOTE | 2020-08-16 11:19 | CT Report ---
PROCEDURE: ANGIO NECK W INDICATIONS: L sided numbness x 24 hours, dysarthria CONTRAST: IV CONTRAST: Optiray 320 ml: 100 PO CONTRAST: *NO PO CONTRAST TECHNIQUE: After the administration of intravenous contrast, 1.5 mm axial sections acquired from the aortic arch to the [place]. Coronal 3-D maximum intensity projection (MIP) and/or volume rendering ref ormats were then performed. For radiation dose reduction, the following was used: automated exposur e control, adjustment of mA and/or kV according to patient size. COMPARISON: Correlation is made with the accompanying head CT, 08/16/2020. Comparison is made to the prior CT neck angiogram images, 10/15/2017. FINDINGS: Image quality: Excellent. Carotid system: The great vessels demonstrate a conventional anatomy as they arise from the aortic a rch. The origins of the common carotid arteries appear patent. The common carotid arteries demonstr ate normal calibers and courses. The bifurcation regions appear normal bilaterally. The internal ca rotid arteries demonstrate normal caliber and course. Posterior circulation: The origins of the vertebral arteries appear patent. The more superior porti ons of the vertebral arteries demonstrate normal course and caliber. They join to form a normal appe aring basilar artery. Soft tissues: Visualized neck soft tissues demonstrate no suspicious abnormalities. The thyroid gla nd is normal in size. Bones: No suspicious bony lesions. Visualized cervical spine appears normally aligned. Cervical s pine degenerative changes are seen, with moderate to severe disc space narrowing at C4-C5 and C5-C6. IMPRESSION: No hemodynamically significant stenosis can be seen within the arteries of the neck. Note is made of lower cervical spine degenerative change. The estimate of stenosis included in the report of the imaging study was calculated using the NASCET method Reviewed by: Gautam Biggs MD on 08/16/2020 10:18 AM RIKY Approved by: Gautam Biggs MD on 08/16/2020 10:18 AM AKKEITH Station ID: [id number]
--- NOTE | 2020-08-16 11:23 | CT Report ---
PROCEDURE: ANGIO HEAD W/WO INDICATIONS: L sided numbness x 24 hours, dysarthria CONTRAST: IV CONTRAST: Optiray 320 ml: 80 PO CONTRAST: *NO PO CONTRAST TECHNIQUE: Precontrast 4.5 mm thick angled axial sections acquired from the foramen magnum to the vertex. Afte r the administration of intravenous contrast, 1 mm thick sections acquired through the [place] is. Postcontrast 4.5 mm thick sections then re-acquired from the foramen magnum to the vertex. 3-di mensional jyoxnfc-grjfcsjrv-limszfeglv (MIP) and/or volume rendering reformats were acquired of the c entral intracranial vasculature. For radiation dose reduction, the following was used: automated ex posure control, adjustment of mA and/or kV according to patient size. COMPARISON: 02/10/2019, 08/01/2018. Correlation is also made with the accompanying neck CT angiogram, 08/16/2020. Correlation is also made with prior brain MR I, 10/07/2017. FINDINGS: Image quality: Excellent. Anterior circulation: Intracranial internal carotid arteries are normal in size and flow. The flow within the paired anterior cerebral arteries is normal and symmetric. The flow within the middle cer ebral arteries is normal and symmetric. The anterior communicating artery is seen. No aneurysms are seen. Posterior circulation: Visualized portions of the vertebral arteries demonstrate normal caliber, and join to form a normal appearing basilar artery. Flow within the posterior cerebral arteries is norm al and symmetric. No aneurysms are seen. CSF spaces: Ventricles are normal in size and shape. Basal cisterns are patent. No extra-axial flu id collections. Brain: No midline shift. No intracranial bleeds or masses. [place]tt-white matter interface appears int act. Skull and face: Calvarium and facial bones appear intact, without suspicious lesions. Sinuses: Visualized sinuses and mastoids are clear. IMPRESSION: No significant intracranial arterial abnormalities are seen. No significant intracranial abnormality is seen. If it would be helpful for clinical management decision making, please consider a dedicated brain MRI for further evaluation (assuming that there is no contraindication). Reviewed by: Gautam Biggs MD on 08/16/2020 10:21 AM RIKY Approved by: Gautam Biggs MD on 08/16/2020 10:21 AM AK Station ID: [id number]
[2020-08-16] MEDS ORDERED: ACETAMINOPHEN 325 MG TABLET PO PRN (12:23)
[2020-08-16] MEDS ORDERED: ONDANSETRON 4 MG/2 ML VIAL IVP PRN (12:23)
--- NOTE | 2020-08-16 12:44 | HISTORY & PHYSICAL EXAMINATION ---
Chief Complaint - Chief Complaint Chief Complaint: numbness and slow speach History of Present Illness - Admitted From Admitted From:: ER - History Obtained From Records Reviewed: [facility] History obtained from: pt and his Exam Limitations: no - History of Present Illness HPI Comment/Other: Tina Wilson is a well-appearing 65-year old male with a past medical history of right thalamus stroke on 2017, hypertension, BPH and hyperlipidemia, who presented to the ED Complaint of left Upper extremity numbness, feeling of cold on left side. Patient report he feels numbness in left upper extremity for about 2 weeks, But worsening in this morning. He also reported he feeling cold in his left lower side. his also reported she feels his speech is very slow in the morning but no slurred speech. He denies weakness in his left side. He also denies vision loss, headache. Patient reported he take his medication such as aspirin as scheduled, he do not like Lipitor medication he take one pill per another day. CTA of head and NECK Was unremarkable. UA indicated UTI, Other laboratory value was unremarkable. Discussed the care goal with patient, patient request full code. History - Past Medical History Cardiovascular: reports: Hypertension, High cholesterol, Other Respiratory: reports: None Neuro: reports: CVA Endocrine/Autoimmune: reports: None GI: reports: None : reports: Benign prostate hypertrophy, Incontinence, Frequency HEENT: reports: None Psych: reports: None Musculoskeletal: reports: None Derm: reports: None MRSA Hx?: No - Past Surgical History General: reports: Appendectomy HEENT: reports: Cataracts - Family & Social History Family History: Mother: , Father: Family History Comment/Other: Patient report his father at the age 78 with liver cancer,His father was heavy smoke and drunk. His mother at age 82 with stomach cancer. Living arrangement: At home Living Situation: With spouse/s.o. Social History Notes: Patient denies history of smoking, alcohol or drug issue. He worked at [employer] in [place]. - POLST Patient has POLST: No Meds/Allgy - Home Medications Home Medications: Ambulatory Orders Medication Instructions Recorded Confirmed Aspirin [Alireza] 325 mg PO DAILYWM #30 tablet 10/16/17 08/16/20 Atorvastatin [Lipitor] 10 mg PO DAILY #30 tablet 10/16/17 08/16/20 Prazosin [Minipress] 1 mg PO QPM #30 capsule 10/16/17 08/16/20 Fluticasone [Flonase] 1 sprays BRITNEY DAILY 08/01/18 08/16/20 Losartan [Cozaar] 50 mg PO DAILY 08/01/18 08/16/20 Tamsulosin HCl [Flomax] 0.4 mg PO DAILY 08/01/18 08/16/20 hydroCHLOROthiazide 25 mg PO DAILY #30 tablet 08/01/18 08/16/20 [Hydrochlorothiazide] Latanoprost 2 applic EACHEYE DAILY 08/16/20 08/16/20 - Allergies Allergies/Adverse Reactions: Allergies Allergy/AdvReac Type Severity Reaction Status Date / Time No Known Drug Allergies Allergy Verified 08/16/20 09:12 Review of Systems - Constitutional Constitutional: denies: Fatigue, Fever, Chills, Weakness, Poor appetite, Diaphoresis - Eyes Eyes: denies: Pain, Blurred vision, Field loss, Vision loss, Dipolpia - Ears, Nose & Throat Ears, Nose & Throat: denies: Ear pain, Hearing loss, Vertigo, Nosebleeds, Bleedi ng gums - Cardiovascular Cariovascular: denies: Irregular heart rate, Palpitations, Chest pain, Edema, Lightheadedness, Syncope, Exertional dyspnea, Decr. exercise tolerance - Respiratory Respiratory: denies: Cough, Sputum production, Wheezing, Hemoptysis, Orthopnea, SOB at rest, SOB with exertion - Gastrointestinal Gastrointestinal: denies: Abdominal pain, Diarrhea, Rectal bleeding, Black stools, Bloody stools, Nausea, Vomiting - Genitourinary Genitourinary: denies: Dysuria, Hematuria, Incontinence - Musculoskeletal Musculoskeletal: denies: Muscle pain, Muscle aches, Muscle weakness - Integumentary Integumentary: denies: Rash, Pruritis, Lumps - Neurological Neurological: reports: Numbness. denies: General weakness, Focal weakness, Headache, Dizziness, Memory problems, Pre-existing deficit, Abnormal gait, Seizures, Incoordination, Slurred speech - Psychiatric Psychiatric: denies: Suicidal, Delusions, Hallucinations - Endocrine Endocrine: denies: Polyuria, Polyphagia - Hematologic/Lymphatic Hematologic/Lymphatic: denies: Anemia, Blood clots Exam - Vital Signs Vital Signs: Vital Signs x48h Temp Pulse Resp BP Pulse Ox 08/16/20 12:26 53 L 14 95 08/16/20 11:37 73 18 132/79 H 97 08/16/20 11:04 56 L 15 129/82 H 08/16/20 10:29 70 17 122/88 H 97 08/16/20 09:31 76 13 153/104 H 97 08/16/20 09:06 36.4 C L 98 16 142/93 H 97 - Physical Exam General Appearance: positive: No acute distress, Alert. negative: Lethargic Eyes Bilateral: positive: Normal inspection, PERRL, No lid inflammation ENT: positive: ENT inspection nml, No signs of dehydration. negative: Purulent nasal drainage Neck: positive: Nml inspection, Thyroid nml, Trachea midline. negative: Thyromegaly, Tracheal deviation Respiratory: positive: Chest non-tender, No respiratory distress, Breath sounds nml. negative: Wheezes, Rales, Rhonchi Cardiovascular: positive: Regular rate & rhythm, No murmur, Tachycardia. neg ative: Bradycardia, Systolic murmur, Diastolic murmur Peripheral Pulses: positive: 2+ Abdomen: positive: Non-tender, Nml bowel sounds, No distention. negative: Tenderness, Guarding, Rebound Back: positive: Nml inspection Skin: positive: Color nml, No rash, Warm, Dry. negative: Cyanosis, Diaphoresis, Pallor Extremities: positive: Non-tender, Full ROM, Nml appearance. negative: Pedal edema, Calf tenderness Neurologic/Psychiatric: positive: Oriented x3, Motor nml, Sensation nml, Mood/affect nml. negative: Weakness, Sensory loss, Facial droop, Slurred/abnml speech, Depressed mood/affect Conclusion/Plan - Problem List (1) Numbness Conclusion/Plan: Patient reported he has numbness on left upper extremity But without weakness. Patient has history of thalamus stroke in 2017. CTA of neck and head was unremarkable now. We will do MRI of the brain and echo. Resume home medication aspirin plus Plavix, Lipitor 80 mg daily. check lipid panel. (2) Dysarthria Conclusion/Plan: Patient reported patient had slowed speech in the morning. Now patient symptoms is resolved. We will manage patient as above (3) Hx of stroke without residual deficits Conclusion/Plan: Patient has history thalamus stroke in 2017, Patient take a daily aspirin and Lipitor at the other day. It is not clear patient has exacerbation of her previous deficit or new onset of symptoms. We will do MRI of the brain (5) BPH (benign prostatic hyperplasia) Conclusion/Plan: Resume home medication (6) HLD (hyperlipidemia) Conclusion/Plan: Start with Lipitor 80 mg daily, Check lipid panel. - Lab Results Fish Bones: 08/16/20 09:19 08/16/20 09:19 Core Measures - Anticipated LOS I expect patient to be DC'd or transferred within 96 hours.: Yes - DVT/VTE - Prophylaxis VTE/DVT Device ordered at admit?: Yes VTE/DVT Prophylaxis med ordered at admit?: Yes
[2020-08-16] MEDS ORDERED: SODIUM CHLORIDE 0.9% 1,000 ML IV SCH (13:00)
[2020-08-16] MEDS: ASPIRIN 325 MG TABLET PO SCH (14:05)
[2020-08-16] MEDS: CLOPIDOGREL 75 MG TABLET PO SCH (14:06)
[2020-08-16] MEDS: SODIUM CHLORIDE FLUSH 0.9% 10 ML SYRINGE IVP SCH (16:18)
[2020-08-16] MEDS ORDERED: POTASSIUM CHLORIDE 20 MEQ TABLET PO ONE (16:37)
[2020-08-16] MEDS ORDERED: LORazepam 2 MG/ML VIAL IVP SCH (18:00)
[2020-08-16] MEDS: SODIUM CHLORIDE FLUSH 0.9% 10 ML SYRINGE IVP PRN (18:54)
--- NOTE | 2020-08-16 20:20 | MRI Report ---
PROCEDURE: Brain W/O INDICATIONS: stroke TECHNIQUE: Noncontrast axial T1 spin echo, axial T2 fast spin echo, sagittal and axial FLAIR, coronal T2 fast sp in echo, axial gradient echo, axial diffusion and ADC through the brain. COMPARISON: Correlation is made with prior head CT and CT angiogram examinations dated 08/16/2020. C omparison is made to prior brain MRI, 10/07/2017. FINDINGS: Image quality: Motion artifact is noted. CSF Spaces: Basal cisterns are patent. No extra-axial fluid collections. Ventricles are normal in size and shape. Brain: No intracranial masses or hemorrhage. Triplett/white matter interface is normal. Brainstem appe ars normal. Brain parenchymal volume loss is seen. Chronic small vessel ischemic changes can be seen. Diffusion-weighted images demonstrate no acute ischemic insult. No chronic ischemic insults. Wanda l intravascular flow voids are present. Incidental note is made of a cavum of septum pellucidum. Thi s is of likely no clinical consequence, when incidentally discovered in isolation. Skull and face: Calvarium has normal marrow signal. Orbits appear normal. Incidental note is made of bilateral lens replacements. Sinuses: Sinuses and mastoids are clear. IMPRESSION: No findings of acute or subacute infarction are seen. Age-appropriate brain parenchymal volume loss and chronic small vessel ischemic change can be seen. Reviewed by: Gautam Biggs MD on 08/16/2020 7:19 PM RIKY Approved by: Gautam Biggs MD on 08/16/2020 7:19 PM AKKEITH Station ID: [id number]
[2020-08-16] MEDS ORDERED: PRAZOSIN 1 MG CAPSULE PO SCH (21:00)
[2020-08-16] MEDS ORDERED: ATORVASTATIN 40 MG TABLET PO SCH (21:00)
[2020-08-17] MEDS: SODIUM CHLORIDE FLUSH 0.9% 10 ML SYRINGE IVP SCH ×3 (01:23→17:39)
[2020-08-17] MEDS: SODIUM CHLORIDE FLUSH 0.9% 10 ML SYRINGE IVP PRN (03:17)
[2020-08-17 05:46] LABS: BASOPHILS % (AUTO) 0.3 %; EOSINOPHILS # (AUTO) 0.3 10^3/uL (0.0-0.7); EOSINOPHILS % (AUTO) 4.5 %; HGB - HEMOGLOBIN 14.2 g/dL (14.0-18.0); LYMPHOCYTES # (AUTO) 1.9 10^3/uL (1.5-3.5); LYMPHOCYTES % (AUTO) 28.7 %; MEAN CORPUSCULAR HEMOGLOBIN 30.3 pg (27.0-31.0); MEAN CORPUSCULAR HGB CONC 33.2 g/dL (32.0-36.0); MEAN CORPUSCULAR VOLUME 91.3 fL (80.0-94.0); MEAN PLATELET VOLUME 9.7 fL (7.4-11.4); MONOCYTES # (AUTO) 0.5 10^3/uL (0.0-1.0); MONOCYTES % (AUTO) 7.7 %; NEUTROPHILS # (AUTO) 3.9 10^3/uL (1.5-6.6); NEUTROPHILS % (AUTO) 58.7 %; PLT - PLATELET COUNT 214 10^3/uL (130-450); RED BLOOD COUNT 4.69 10^6/uL (4.70-6.10); WHITE BLOOD COUNT 6.7 x10^3/uL (4.8-10.8)
[2020-08-17 05:53] LABS: CALCIUM 8.4 mg/dL (8.5-10.3)
[2020-08-17 06:13] LABS: CHOL/HDL RATIO 4.5 (<5.0); CHOLESTEROL 144 mg/dL; HDL CHOLESTEROL 32 mg/dL; LDL CHOLESTEROL,CALCULATED 78 mg/dL; LDL/HDL RATIO 2.4 (<3.6); VLDL CHOLESTEROL 34 mg/dL
[2020-08-17] MEDS ORDERED: PANTOPRAZOLE 40 MG TABLET PO SCH (07:00)
[2020-08-17] MEDS ORDERED: POTASSIUM CHLORIDE 20 MEQ TABLET PO ONE (08:37)
[2020-08-17] MEDS ORDERED: LATANOPROST 0.005% OPHTH DROPS EACHEYE SCH (09:00)
[2020-08-17] MEDS ORDERED: TAMSULOSIN 0.4 MG CAPSULE PO SCH (09:00)
[2020-08-17] MEDS ORDERED: cefTRIAXone 1 GM in SODIUM CHLORIDE 0.9% MINIBAG 100 ML IV SCH (09:00)
[2020-08-17] MEDS: CLOPIDOGREL 75 MG TABLET PO SCH (09:04)
[2020-08-17] MEDS: ASPIRIN 325 MG TABLET PO SCH (09:04)
--- NOTE | 2020-08-17 10:28 | PHARMACY PROGRESS NOTE ---
- Best Possible Medication History Admit Date and Time: 08/16/20 1223 Processed by: Nursing Medication History completed: Yes As the person ultimately responsible for medication therapy, providers are able to order a medication from an existing home medication list in [facility] via the "Reconcile Routine" prior to Confirmation of that medication by patient support partner. Such practice is discouraged except when the physician, in their clinical judgment, deems that a medical need exists for a medication without regard to previous use.
--- NOTE | 2020-08-17 16:48 | Discharge Plan ---
Discharge Plan Problem Reviewed?: Yes Disposition: Home, Self Care Condition: Stable Prescriptions: cephALEXin [Keflex] 250 mg PO Q6H #8 capsule Diet: Regular Activity Restrictions: Activity as Tolerated Shower Restrictions: No (fall precaution) Instruction Topics: [facility] Concerns: Your image studies including MRI of brain, CTA of brain, neck, ECHO are unremarkable, PT/OT evaluated and treated for you. You had hx of thalamus stroke before, advise continue take your aspirin daily and daily taking your Lipitor not another day. another two days antibiotics for your simple UTI treatment. Plan of Treatment: as above Care Goals: stabilization and improvement of your medical conditions Assessment: discussed the care plan with you, you understood. Additional Instructions or Follow Up instructions: You may followup with your PCP in two weeks, followup with neurologist as out- pt. Should your symptoms return or worsen, you may present ER or call 911 for help. No Smoking: If you smoke, Please STOP! Call for help. Follow-up with: Tung Sepulveda MD [Primary Care Provider] -
--- NOTE | 2020-08-17 17:00 | DISCHARGE SUMMARY ---
Discharge Summary Admit Date: 08/16/20 Discharge Date: 08/17/20 Discharging Provider: Avelino Plaza Primary Care Provider: Dr. Sepulveda Condition at Discharge: Stable Discharge Disposition: 01 Home, Self Care Discharge Facility Name: home - DIAGNOSES Discharge Diagnoses with Status of Each Condition: (1) Numbness improved. pt has no other focal neurological deficits. PT/OT evaluation and treatment to pt. Pt's all image studies including MRI of brain, CTA of neck and head, ECHO are unremarkable. pt had thalamus stroke on 2017, he had this kind of symptoms before, it is possible residence symptoms from previous stroke, but pt report he had improvement. advise pt followup with neurologist as out-pt. continue home meds aspirin and advise daily lipitor. pt report he only took lipitor per another day. (2) Dysarthria resolved (3) Hx of stroke stable (5) BPH (benign prostatic hyperplasia) stable, Resume home medication (6) HLD (hyperlipidemia) stable, daily lipitor (7)UTI pt has hx of UTI, UA culture at this time show positive Staph epidemidise, pt is prescribed antibiotics for total three days treatment. - HPI History of Present Illness: Tina Wilson is a well-appearing 65-year old male with a past medical history of right thalamus stroke on 2017, hypertension, BPH and hyperlipidemia, who presented to the ED Complaint of left Upper extremity numbness, feeling of cold on left side. Patient report he feels numbness in left upper extremity for about 2 weeks, But worsening in this morning. He also reported he feeling cold in his left lower side. his also reported she feels his speech is very slow in the morning but no slurred speech. He denies weakness in his left side. He also denies vision loss, headache. Patient reported he take his medication such as aspirin as scheduled, he do not like Lipitor medication he take one pill per another day. CTA of head and NECK Was unremarkable. UA indicated UTI, Other laboratory value was unremarkable. Discussed the care goal with patient, patient request full code. - HOSPITAL COURSE Hospital Course: pt was admitted for his left Upper extremity numbness, feeling of cold on left side. pt has intact strength on his bilateral extremities. pt report his numbness has improvement, without any other symptoms. PT/OT evaluated and treated, and d/c pt. Pt's all image studies including MRI of brain, CTA of neck and head, ECHO are unremarkable. pt had thalamus stroke on 2017, he had this kind of symptoms before, it is possible residence symptoms from previous stroke, but pt report he had improvement. pt is advise to followup with neurologist as out-pt. - ALLERGIES Allergies/Adverse Reactions: Allergies Allergy/AdvReac Type Severity Reaction Status Date / Time No Known Drug Allergies Allergy Verified 08/16/20 09:12 - MEDICATIONS Home Medications: Ambulatory Orders Medication Instructions Recorded Confirmed Aspirin [Alireza] 325 mg PO DAILYWM #30 tablet 10/16/17 08/16/20 Atorvastatin [Lipitor] 10 mg PO DAILY #30 tablet 10/16/17 08/16/20 Prazosin [Minipress] 1 mg PO QPM #30 capsule 10/16/17 08/16/20 Fluticasone [Flonase] 1 sprays BRITNEY DAILY 08/01/18 08/16/20 Losartan [Cozaar] 50 mg PO DAILY 08/01/18 08/16/20 Tamsulosin HCl [Flomax] 0.4 mg PO DAILY 08/01/18 08/16/20 hydroCHLOROthiazide 25 mg PO DAILY #30 tablet 08/01/18 08/16/20 [Hydrochlorothiazide] Latanoprost 2 applic EACHEYE DAILY 08/16/20 08/16/20 cephALEXin [Keflex] 250 mg PO Q6H #8 capsule 08/17/20 - PHYSICAL EXAM AT DISCHARGE General Appearance: positive: No acute distress, Alert. negative: Lethargic Eyes Bilateral: positive: Normal inspection, PERRL, No lid inflammation ENT: positive: ENT inspection nml, No signs of dehydration. negative: Purulent nasal drainage Neck: positive: Nml inspection, Thyroid nml, Trachea midline. negative: Thyromegaly, Tracheal deviation Respiratory: positive: Chest non-tender, No respiratory distress, Breath sounds nml. negative: Wheezes, Rales, Rhonchi Cardiovascular: positive: Regular rate & rhythm, No murmur, Bradycardia. negative: Irregularly irregular, Tachycardia, Systolic murmur, Diastolic murmur Peripheral Pulses: positive: 2+ Abdomen: positive: Non-tender, No organomegaly, Nml bowel sounds, No distention. negative: Tenderness, Guarding, Rebound Back: positive: Nml inspection Skin: positive: Color nml, No rash, Warm, Dry. negative: Cyanosis, Diaphoresis, Pallor Extremities: positive: Non-tender, Full ROM, Nml appearance. negative: Pedal edema, Calf tenderness Neurologic/Psychiatric: positive: Oriented x3, Motor nml, Mood/affect nml, Other (pt report mild numbness in his left arm). negative: Sensation nml, Weakness, Sensory loss, Facial droop, Slurred/abnml speech, Depressed mood/affect - LABS Result Diagrams: 08/17/20 05:10 08/17/20 05:10 - FOLLOW UP Follow Up: Your image studies including MRI of brain, CTA of brain, neck, ECHO are unremarkable, PT/OT evaluated and treated for you. You had hx of thalamus stroke before, advise continue take your aspirin daily and daily taking your Lipitor not another day. another two days antibiotics for your simple UTI treatment. You may followup with your PCP in two weeks, followup with neurologist as out- pt. Should your symptoms return or worsen, you may present ER or call 911 for help. - TIME SPENT Time Spent in Discharge (Minutes): 30
[2020-08-17 18:02] VITALS: BP 153/79
== END 2020-08-17 18:04 | disposition home or self-care (01) ==
LOC: ED 08:58 → MS2 12:23
PROVIDERS: ADMIT Nurse Practitioner Gerontology; ATTEND Nurse Practitioner Gerontology
DX: R20.0 Anesthesia of skin (principal); R47.1 Dysarthria and anarthria; Z86.73 Personal history of transient ischemic attack (TIA), and cerebral infarction without residual deficits; N40.0 Benign prostatic hyperplasia without lower urinary tract symptoms; E78.5 Hyperlipidemia, unspecified; N39.0 Urinary tract infection, site not specified; B95.7 Other staphylococcus as the cause of diseases classified elsewhere; I10 Essential (primary) hypertension; T46.6X6A Underdosing of antihyperlipidemic and antiarteriosclerotic drugs, initial encounter; Z91.128 Patient's intentional underdosing of medication regimen for other reason; Z79.82 Long term (current) use of aspirin
CPT/HCPCS: 36415; 70496; 70498; 70551; 80048; 80053; 80061; 81001; 83690; 85025; 85610; 85730; 87077; 87086; 87181; 93005; 93306; 96365; 96375; 97161; 97165; 99285; A9270; G0378; J2060; Q9967; 81003; 83721

== ENCOUNTER 2020-10-08 08:43 | Outpatient (CLI) | payer BC ==
[2020-10-08 12:07] LABS: CALCIUM 8.8 mg/dL (8.5-10.3); CREATININE 1.1 mg/dL (0.6-1.2); MAGNESIUM 2.4 mg/dL (1.7-2.8)
== END 2020-10-08 08:44 | disposition home or self-care (01) ==
LOC: LAB.N 08:43
PROVIDERS: ATTEND Family Medicine
DX: E87.6 Hypokalemia (principal); I10 Essential (primary) hypertension; N40.1 Benign prostatic hyperplasia with lower urinary tract symptoms; N13.8 Other obstructive and reflux uropathy
CPT/HCPCS: 36415; 80048; 83735; 84153

== ENCOUNTER 2021-06-12 08:00 | Outpatient (CLI) | payer MEDICARE, OTHER ==
[2021-06-12 17:50] LABS: BASOPHILS % (AUTO) 0.7 %; EOSINOPHILS # (AUTO) 0.2 10^3/uL (0.0-0.7); EOSINOPHILS % (AUTO) 4.3 %; HCT - HEMATOCRIT 45.7 % (42.0-52.0); HGB - HEMOGLOBIN 15.2 g/dL (14.0-18.0); LYMPHOCYTES # (AUTO) 1.2 10^3/uL (1.5-3.5); LYMPHOCYTES % (AUTO) 27.2 %; MEAN CORPUSCULAR HEMOGLOBIN 30.9 pg (27.0-31.0); MEAN CORPUSCULAR HGB CONC 33.3 g/dL (32.0-36.0); MEAN CORPUSCULAR VOLUME 92.9 fL (80.0-94.0); MEAN PLATELET VOLUME 10.5 fL (7.4-11.4); MONOCYTES # (AUTO) 0.3 10^3/uL (0.0-1.0); MONOCYTES % (AUTO) 7.3 %; NEUTROPHILS # (AUTO) 2.6 10^3/uL (1.5-6.6); NEUTROPHILS % (AUTO) 59.6 %; PLT - PLATELET COUNT 221 10^3/uL (130-450); RED BLOOD COUNT 4.92 10^6/uL (4.70-6.10); RED CELL DISTRIBUTION WIDTH 14.6 % (12.0-15.0); WHITE BLOOD COUNT 4.4 x10^3/uL (4.8-10.8)
[2021-06-12 18:08] LABS: ALBUMIN 4.1 g/dL (3.2-5.5); ALBUMIN/GLOBULIN RATIO 1.3 (1.0-2.2); ALKALINE PHOSPHATASE 109 IU/L (42-121); ALT ALANINE AMINOTRANSFERASE 46 IU/L (10-60); AST ASPARTATE AMINOTRANSFERASE 33 IU/L (10-42); BUN - BLOOD UREA NITROGEN 18 mg/dL (6-20); CALCIUM 8.9 mg/dL (8.5-10.3); CARBON DIOXIDE - CO2 25 mmol/L (21-32); CHLORIDE 107 mmol/L (101-111); CHOL/HDL RATIO 3.2 (<5.0); CHOLESTEROL 136 mg/dL; CREATININE 1.1 mg/dL (0.6-1.2); GFR - MDRD 67 (>89); GLUCOSE 157 mg/dL (70-100); HDL CHOLESTEROL 42 mg/dL; LDL CHOLESTEROL,CALCULATED 51 mg/dL; LDL/HDL RATIO 1.2 (<3.6); MAGNESIUM 2.2 mg/dL (1.7-2.8); POTASSIUM 3.8 mmol/L (3.5-5.0); SODIUM 141 mmol/L (135-145); TOTAL PROTEIN 7.2 g/dL (6.7-8.2); TRIGLYCERIDES 215 mg/dL; VLDL CHOLESTEROL 43 mg/dL
[2021-06-12 18:20] LABS: THYROID STIMULATING HORMONE 0.99 uIU/mL (0.34-5.60)
== END 2021-06-12 23:59 | disposition home or self-care (01) ==
LOC: LAB.WCP 08:00
PROVIDERS: ATTEND Family Medicine
DX: E87.6 Hypokalemia (principal); I10 Essential (primary) hypertension; N40.1 Benign prostatic hyperplasia with lower urinary tract symptoms; E78.5 Hyperlipidemia, unspecified; Z82.3 Family history of stroke; N13.8 Other obstructive and reflux uropathy
CPT/HCPCS: 36415; 80053; 80061; 82306; 83721; 83735; 84153; 84443; 85025

== ENCOUNTER 2021-12-23 09:16 | Outpatient (CLI) | payer MEDICARE, OTHER ==
[2021-12-23 13:05] LABS: BILIRUBIN,URINE NEGATIVE (NEGATIVE); GLUCOSE, URINE (UA) NEGATIVE (NEGATIVE); KETONES,URINE (UA) NEGATIVE (NEGATIVE); LEUKOCYTE ESTERASE, URINE MODERATE (NEGATIVE); NITRITE,URINE POSITIVE (NEGATIVE); OCCULT BLOOD,URINE NEGATIVE (NEGATIVE); PH,URINE 7.5 PH (5.0-7.5); PROTEIN,URINE NEGATIVE (NEGATIVE); UROBILINOGEN,URINE 0.2 (NORMAL) E.U./dL (NORMAL)
[2021-12-23 13:17] LABS: AMORPHOUS SEDIMENT,UR Moderate /LPF; BACTERIA,URINE Few /HPF (None Seen); CLARITY,URINE CLEAR (CLEAR); RBC,URINE 0-5 /HPF (0-5); SQUAMOUS EPITHELIAL CELL,UR FEW Squamous (<= Few); WBC,URINE >25 /HPF (0-3)
[2021-12-23 13:18] LABS: CASTS, URINE 0-2 Granular Casts /LPF; MUCUS,URINE Moderate Strands
== END 2021-12-23 09:17 | disposition home or self-care (01) ==
LOC: LAB.N 09:16
PROVIDERS: ATTEND Family Medicine
DX: R35.0 Frequency of micturition (principal)
CPT/HCPCS: 81001

== ENCOUNTER 2021-12-28 10:55 | Outpatient (CLI) | payer MEDICARE, OTHER ==
[2021-12-28 13:57] LABS: BASOPHILS % (AUTO) 0.3 %; EOSINOPHILS # (AUTO) 0.3 10^3/uL (0.0-0.7); EOSINOPHILS % (AUTO) 5.2 %; HCT - HEMATOCRIT 44.2 % (42.0-52.0); HGB - HEMOGLOBIN 14.9 g/dL (14.0-18.0); LYMPHOCYTES # (AUTO) 1.6 10^3/uL (1.5-3.5); LYMPHOCYTES % (AUTO) 26.3 %; MEAN CORPUSCULAR HGB CONC 33.7 g/dL (32.0-36.0); MEAN CORPUSCULAR VOLUME 91.9 fL (80.0-94.0); MEAN PLATELET VOLUME 10.3 fL (7.4-11.4); MONOCYTES # (AUTO) 0.6 10^3/uL (0.0-1.0); MONOCYTES % (AUTO) 9.3 %; NEUTROPHILS # (AUTO) 3.5 10^3/uL (1.5-6.6); NEUTROPHILS % (AUTO) 58.7 %; PLT - PLATELET COUNT 236 10^3/uL (130-450); RED BLOOD COUNT 4.81 10^6/uL (4.70-6.10); RED CELL DISTRIBUTION WIDTH 14.5 % (12.0-15.0); WHITE BLOOD COUNT 5.9 x10^3/uL (4.8-10.8)
== END 2021-12-28 23:59 | disposition home or self-care (01) ==
LOC: LAB.N 10:55
PROVIDERS: ATTEND Physician Assistant Medical
DX: K62.5 Hemorrhage of anus and rectum (principal)
CPT/HCPCS: 36415; 85025

== ENCOUNTER 2022-01-13 10:48 | Day surgery (SDC) | payer MEDICARE, OTHER ==
[2022-01-13] MEDS ORDERED: LACTATED RINGERS 1,000 ML IV ONE ×2 (11:06→12:17)
[2022-01-13] MEDS ORDERED: PROPOFOL 500 MG/50 ML 500 MG/50 ML VIAL ONE (11:22)
--- NOTE | 2022-01-13 11:35 | ANESTHESIA ---
Pre-Anesthesia VS, & Labs - Diagnosis rectal bleeding - Procedure colonoscopy Vital Signs: Temp Pulse Resp BP Pulse Ox 36.9 C 77 16 161/105 H 98 01/13/22 11:06 01/13/22 11:06 01/13/22 11:06 01/13/22 11:06 01/13/22 11:06 Height: 5 ft 5 in Weight (kg): 69.9 kg Body Mass Index: 25.6 BMI Classification: Overweight - NPO >8 hours - Lab Results Lab results reviewed: Yes Home Medications and Allergies Fluticasone [Flonase] 1 sprays BRITNEY DAILY 08/01/18 Losartan [Cozaar] 50 mg PO DAILY 08/01/18 Tamsulosin HCl [Flomax] 0.4 mg PO DAILY 08/01/18 Latanoprost 2 applic EACHEYE DAILY 08/16/20 Allergies/Adverse Reactions: Allergies Allergy/AdvReac Type Severity Reaction Status Date / Time levofloxacin Allergy Unknown Verified 01/13/22 11:06 hay fever Allergy Unknown Uncoded 01/13/22 10:25 Anes History & Medical History - Anesthetic History Anesthesia Complications: reports: No previous complications Family history of Anesthesia Complications: Denies Family history of Malignant Hyperthermia: Denies - Medical History Cardiovascular: reports: Hypertension, High cholesterol, Other Pulmonary: reports: None Gastrointestinal: reports: None Urinary: reports: Benign prostate hypertrophy, Incontinence, Frequency Neuro: reports: CVA Musculoskeletal: reports: None, Osteoarthritis Endocrine/Autoimmune: reports: None Blood Disorders: reports: None Skin: reports: None Smoking Status: Never smoker - Surgical History General: reports: Appendectomy Eyes Ears Nose Throat (EENT): reports: Cataracts Exam General: Alert, Oriented x3, Cooperative, No acute distress Dental: WNL Mouth Openin Fingerbreadth Neck Mobility: Normal Mallampati classification: II Plan Anesthesia Type: General, Total IV Consent for Procedure(s) Verified and Reviewed: Yes Code Status: Attempt Resuscitation ASA classification: 2-Mild systemic disease Is this case an emergency?: No
[2022-01-13 12:47] LABS: BASOPHILS % (AUTO) 0.4 %; EOSINOPHILS # (AUTO) 0.2 10^3/uL (0.0-0.7); EOSINOPHILS % (AUTO) 2.8 %; HCT - HEMATOCRIT 39.3 % (42.0-52.0); HGB - HEMOGLOBIN 13.6 g/dL (14.0-18.0); LYMPHOCYTES % (AUTO) 18.6 %; MEAN CORPUSCULAR HEMOGLOBIN 31.2 pg (27.0-31.0); MEAN CORPUSCULAR HGB CONC 34.6 g/dL (32.0-36.0); MEAN CORPUSCULAR VOLUME 90.1 fL (80.0-94.0); MEAN PLATELET VOLUME 9.7 fL (7.4-11.4); MONOCYTES # (AUTO) 0.3 10^3/uL (0.0-1.0); MONOCYTES % (AUTO) 6.3 %; NEUTROPHILS # (AUTO) 3.8 10^3/uL (1.5-6.6); NEUTROPHILS % (AUTO) 71.7 %; PLT - PLATELET COUNT 222 10^3/uL (130-450); RED BLOOD COUNT 4.36 10^6/uL (4.70-6.10); WHITE BLOOD COUNT 5.3 x10^3/uL (4.8-10.8)
[2022-01-13] MEDS ORDERED: IOVERSOL 320 100 ML VIAL IVP ONE ×2 (12:56→14:57)
[2022-01-13] MEDS ORDERED: IOVERSOL 320 50 ML VIAL ONE (12:56)
[2022-01-13 13:00] LABS: ALBUMIN 3.7 g/dL (3.2-5.5); ALBUMIN/GLOBULIN RATIO 1.5 (1.0-2.2); BILIRUBIN,TOTAL 1.1 mg/dL (0.2-1.0); CALCIUM 8.7 mg/dL (8.5-10.3); CREATININE 1.1 mg/dL (0.6-1.2); TOTAL PROTEIN 6.2 g/dL (6.7-8.2)
[2022-01-13 14:08] VITALS: BP 162/99
--- NOTE | 2022-01-13 14:17 | ANESTHESIA POST OP EVALUATION ---
Anesthesia Post Eval - Post Anesthesia Eval Vitals: Last Vital Signs Temp 36.3 C L 01/13/22 14:07 Pulse 70 01/13/22 14:07 Resp 16 01/13/22 14:07 BP 162/99 H 01/13/22 14:07 Pulse Ox 97 01/13/22 14:07 CV Function Including HR & BP: Stable Pain Control: Satisfactory Nausea & Vomiting: Negative Mental Status: Baseline Respiratory Status: Airway Patent Hydration Status: Satisfactory Anesthesia Complications: None
[2022-01-13] MEDS ORDERED: IOVERSOL 320 50 ML VIAL PO ONE (14:58)
--- NOTE | 2022-01-13 16:48 | CT Report ---
PROCEDURE: Abdomen/Pelvis W INDICATIONS: Sigmoid mass CONTRAST: IV CONTRAST: Optiray 320 ml: 100 PO CONTRAST: Optiray 320 ml50 TECHNIQUE: After the administration of IV and oral contrast, 5 mm thick sections acquired from the diaphragms to the symphysis. 5 mm thick coronal and sagittal reformats were acquired. For radiation dose reducti on, the following was used: automated exposure control, adjustment of mA and/or kV according to elsa ent size. COMPARISON: 12/22/2019 FINDINGS: Image quality: Excellent. ABDOMEN: Lung bases: Lung bases are clear. Heart size is normal. No hiatal hernia. Liver: Normal attenuation. No masses. Gallbladder: Normal wall thickness. No calcified stones. Biliary system: Nondilated. Pancreas: Normal. Spleen: Normal size. Adrenal glands: No nodules. Kidneys: Normal size, symmetric enhancement. Several varying sized renal cysts bilaterally. Mild bila teral and symmetric hydronephrosis without obstructing stone. Normal ureters. Peritoneum and bowel: Dementia the colon is opacified with contrast and demonstrates normal wall thi ckness. The sigmoid colon is redundant. There are the apex of the loop, the colon becomes decompresse d and wall thickening is difficult to assess. The remainder of the colon and rectum are decompressed. An extraluminal mass is not appreciated. Stomach and small bowel loops are otherwise normal. . No free fluid or air. Nodes and vessels: There is a single suspicious lymph node near the base of the small bowel mesentery measuring 1.3 cm in short axis with blurred margins and mild hyperenhancement. There are several oth er mesenteric lymph nodes, but no other significantly enlarged. The next most suspicious lymph nodes are mildly enhancing, present at the base the small bowel mesentery, and measure 7 and 8 mm in short axis. Aorta and inferior vena cava are normal in size. Miscellaneous: No ventral hernias. PELVIS: Genitourinary: The urinary bladder is distended and there are several bladder diverticula. The urinar y bladder is enlarged in the craniocaudal direction. There is a single calcification along the bass singer ior wall, possibly within the posterior wall measuring about 3 mm. The prostate gland is mildly enlar ged and there is particular median lobe hypertrophy. Miscellaneous: No inguinal hernias or adenopathy. Bones: No suspicious bony lesions. No vertebral body compression fractures. IMPRESSION: 1. No extraluminal extension of possible proximal sigmoid colon mass. 2. There are several questionable and borderline mesenteric lymph nodes as described, the largest in the upper abdomen. No retroperitoneal adenopathy. 3. No evidence of other metastatic disease in the abdomen or pelvis. 4. Prostatomegaly and evidence of chronic bladder outlet obstruction including a nonobstructing bladd er stone. Reviewed by: Caroline Astorga MD on 01/13/2022 4:47 PM PDT Approved by: Caroline Astorga MD on 01/13/2022 4:47 PM PDT Station ID: [id number]
== END 2022-01-13 10:49 | disposition home or self-care (01) ==
LOC: SDS 10:48
PROVIDERS: ATTEND Surgery
PROC: 0DBL8ZX Excision of Transverse Colon, Via Natural or Artificial Opening Endoscopic, Diagnostic (ICD-10-PCS; 2022-01-13)
PROC: 0DBN8ZX Excision of Sigmoid Colon, Via Natural or Artificial Opening Endoscopic, Diagnostic (ICD-10-PCS; 2022-01-13)
PROC: 0DBC8ZX Excision of Ileocecal Valve, Via Natural or Artificial Opening Endoscopic, Diagnostic (ICD-10-PCS; principal; 2022-01-13 12:15)
DX: C18.7 Malignant neoplasm of sigmoid colon (principal); D12.3 Benign neoplasm of transverse colon; K63.5 Polyp of colon; K64.8 Other hemorrhoids; R63.4 Abnormal weight loss; I69.954 Hemiplegia and hemiparesis following unspecified cerebrovascular disease affecting left non-dominant side; N40.1 Benign prostatic hyperplasia with lower urinary tract symptoms; N39.498 Other specified urinary incontinence; R35.0 Frequency of micturition; I10 Essential (primary) hypertension; E78.1 Pure hyperglyceridemia; Z68.25 Body mass index [BMI] 25.0-25.9, adult; Z79.51 Long term (current) use of inhaled steroids; Z79.899 Other long term (current) drug therapy; Z80.0 Family history of malignant neoplasm of digestive organs
CPT/HCPCS: 36415; 45380; 45385; 74177; 80053; 82378; 85025; J7120; Q9967

== ENCOUNTER 2023-04-01 08:04 | Outpatient (CLI) | payer MEDICARE, OTHER ==
[2023-04-01 12:21] LABS: ESTIMATED AVERAGE GLUCOSE 126 mg/dL (70-100)
[2023-04-01 12:52] LABS: BUN - BLOOD UREA NITROGEN 21 mg/dL (6-20); CALCIUM 8.8 mg/dL (8.5-10.3); CARBON DIOXIDE - CO2 26 mmol/L (21-32); CHLORIDE 112 mmol/L (101-111); CHOLESTEROL 131 mg/dL; CREATININE 0.9 mg/dL (0.6-1.2); GFR - MDRD 84 (>89); GLUCOSE 105 mg/dL (70-100); HDL CHOLESTEROL 43 mg/dL; LDL CHOLESTEROL,CALCULATED 64 mg/dL; LDL/HDL RATIO 1.5 (<3.6); POTASSIUM 3.7 mmol/L (3.5-5.0); SODIUM 141 mmol/L (135-145); TRIGLYCERIDES 119 mg/dL; VLDL CHOLESTEROL 24 mg/dL
== END 2023-04-01 08:05 | disposition home or self-care (01) ==
LOC: LAB.N 08:04
PROVIDERS: ATTEND Family Medicine
DX: E11.9 Type 2 diabetes mellitus without complications (principal); E78.1 Pure hyperglyceridemia; Z12.5 Encounter for screening for malignant neoplasm of prostate
CPT/HCPCS: 36415; 80048; 80061; 83036; G0103; 83721; 84153

== ENCOUNTER 2023-04-04 10:05 | Outpatient (CLI) | payer MEDICARE, OTHER | END 2023-04-04 10:06 | disposition home or self-care (01) | LOC: LAB.N 10:05 | PROVIDERS: ATTEND Family Medicine | DX: C18.7 Malignant neoplasm of sigmoid colon (principal) | CPT/HCPCS: 36415; 82378 ==

== ENCOUNTER 2023-04-06 06:22 | Day surgery (SDC) | payer MEDICARE, OTHER ==
[2023-04-06] MEDS ORDERED: LACTATED RINGERS 1,000 ML IV ONE ×2 (06:36→07:54)
--- NOTE | 2023-04-06 07:20 | ANESTHESIA ---
Pre-Anesthesia VS, & Labs - Diagnosis history of colon cancer - Procedure colonoscopy Height: 5 ft 5 in Weight (kg): 69 kg Body Mass Index: 25.3 BMI Classification: Overweight - NPO Other (prep as directed) Home Medications and Allergies Fluticasone [Flonase] 1 sprays BRITNEY DAILY 08/01/18 Losartan [Cozaar] 50 mg PO DAILY 08/01/18 Tamsulosin HCl [Flomax] 0.4 mg PO DAILY 08/01/18 Latanoprost 2 applic EACHEYE DAILY 08/16/20 Allergies/Adverse Reactions: Allergies Allergy/AdvReac Type Severity Reaction Status Date / Time levofloxacin Allergy Unknown Verified 04/06/23 06:44 hay fever Allergy Unknown Uncoded 04/06/23 06:44 Anes History & Medical History - Anesthetic History Anesthesia Complications: reports: No previous complications - Medical History Cardiovascular: reports: Hypertension, High cholesterol, Other Pulmonary: reports: None Gastrointestinal: reports: Other Urinary: reports: Benign prostate hypertrophy, Incontinence, Frequency Neuro: reports: CVA Musculoskeletal: reports: None, Osteoarthritis Endocrine/Autoimmune: reports: None Blood Disorders: reports: None Skin: reports: None Smoking Status: Never smoker History of Cancer?: Yes - Surgical History General: reports: Appendectomy Eyes Ears Nose Throat (EENT): reports: Cataracts Exam General: Alert, Oriented x3 Dental: WNL Mouth Opening: Greater than 4 Fingerbreadths Neck Mobility: Normal Mallampati classification: II Thyromental Distance: greater than 6 cm Respiratory: Lungs clear Cardiovascular: Regular rate Plan Anesthesia Type: Total IV Consent for Procedure(s) Verified and Reviewed: Yes Code Status: Attempt Resuscitation ASA classification: 3-Severe systemic disease Is this case an emergency?: No
[2023-04-06] MEDS ORDERED: PROPOFOL 500 MG/50 ML 500 MG/50 ML VIAL ONE (07:41)
[2023-04-06 08:23] VITALS: BP 99/63
--- NOTE | 2023-04-06 12:53 | ANESTHESIA POST OP EVALUATION ---
Anesthesia Post Eval - Post Anesthesia Eval Vitals: Last Vital Signs Temp 36.2 C L 04/06/23 08:19 Pulse 54 L 04/06/23 08:19 Resp 16 04/06/23 08:19 BP 99/63 04/06/23 08:19 Pulse Ox 99 04/06/23 08:19 O2 Flow Rate CV Function Including HR & BP: Stable Pain Control: Satisfactory Nausea & Vomiting: Negative Mental Status: Baseline Respiratory Status: Airway Patent Hydration Status: Satisfactory Anesthesia Complications: None
== END 2023-04-06 06:23 | disposition home or self-care (01) ==
LOC: SDS 06:22
PROVIDERS: ATTEND Surgery
PROC: 0DJD8ZZ Inspection of Lower Intestinal Tract, Via Natural or Artificial Opening Endoscopic (ICD-10-PCS; principal; 2023-04-06 07:30)
DX: Z08 Encounter for follow-up examination after completed treatment for malignant neoplasm (principal); Z85.038 Personal history of other malignant neoplasm of large intestine; Z86.010 Personal history of colon polyps
CPT/HCPCS: 45378; J7120

== ENCOUNTER 2023-06-26 10:11 | Outpatient (CLI) | payer MEDICARE, OTHER ==
[2023-06-26 13:19] LABS: ESTIMATED AVERAGE GLUCOSE 114 mg/dL (70-100); HEMOGLOBIN A1c% 5.6 % (4.27-6.07)
[2023-06-26 13:30] LABS: CALCIUM 9.5 mg/dL (8.5-10.3); POTASSIUM 3.8 mmol/L (3.5-4.5)
== END 2023-06-26 10:12 | disposition home or self-care (01) ==
LOC: LAB.N 10:11
PROVIDERS: ATTEND Family Medicine
DX: I10 Essential (primary) hypertension (principal); R73.03 Prediabetes; Z12.5 Encounter for screening for malignant neoplasm of prostate; C18.7 Malignant neoplasm of sigmoid colon; N40.1 Benign prostatic hyperplasia with lower urinary tract symptoms; N13.8 Other obstructive and reflux uropathy
CPT/HCPCS: 36415; 80048; 83036; G0103; 84153

== ENCOUNTER 2023-10-12 23:06 | Emergency (ER) | payer MEDICARE, OTHER ==
--- NOTE | 2023-10-12 23:38 | ED Physician Documentation ---
History of Present Illness - Stated complaint Stated Complaint: HIGH BP - Chief complaint Chief Complaint: Cardiac - History obtained from History obtained from: Patient, Family () - Additonal information Additional information: 68yM with pmh htn, hld, colon cancer p/w elevated BP from home with associated palpitations. patient states he has had TIA before and wants to make sure he's not having one. denies fnd, confusion. does have intermittent blurring of vision. states he and his are getting over URIs as well and he still has mild nasal congestion. denies fever, cp soa. PD PAST MEDICAL HISTORY - Past Medical History Past Medical History: Yes Cardiovascular: Hypertension, High cholesterol, Other Respiratory: None Neuro: CVA Endocrine/Autoimmune: None GI: Other : Benign prostate hypertrophy, Incontinence, Frequency HEENT: None Psych: None Musculoskeletal: None, Osteoarthritis Derm: None - Past Surgical History Past Surgical History: Yes General: Appendectomy HEENT: Cataracts - Present Medications Home Medications: Ambulatory Orders Medication Instructions Recorded Confirmed Aspirin [Alireza] 325 mg PO DAILYWM #30 tablet 10/16/17 10/13/23 Atorvastatin [Lipitor] 10 mg PO DAILY #30 tablet 10/16/17 10/13/23 Prazosin [Minipress] 1 mg PO QPM #30 capsule 10/16/17 10/13/23 Fluticasone [Flonase] 1 sprays BRITNEY DAILY PRN 08/01/18 10/13/23 Tamsulosin HCl [Flomax] 0.4 mg PO DAILY 08/01/18 10/13/23 Latanoprost 2 applic EACHEYE HS 08/16/20 10/13/23 Finasteride [Proscar] 5 mg PO DAILY 09/25/23 10/13/23 Losartan [Cozaar] 50 mg PO BID 10/13/23 10/13/23 timoloL 0.5% OPHTH DROPS(10ML) 1 drops EACHEYE BID 10/13/23 10/13/23 [Timoptic 0.5% Ophth Drops] - Allergies Allergies/Adverse Reactions: Allergies Allergy/AdvReac Type Severity Reaction Status Date / Time levofloxacin Allergy Unknown Verified 10/12/23 23:29 hay fever Allergy Unknown Uncoded 10/12/23 23:29 - Social History Does the pt smoke?: No Smoking Status: Never smoker Does the pt drink ETOH?: No Does the pt have substance abuse?: No - Immunizations Immunizations are current?: Yes - POLST Patient has POLST: No PD ED PE NORMAL - Vitals Vital signs reviewed: Yes - General General: Alert and oriented X 3, No acute distress, Well developed/nourished - HEENT HEENT: Atraumatic, PERRL, EOMI - Neck Neck: Supple, no meningeal sign - Cardiac Cardiac: RRR - Respiratory Respiratory: No respiratory distress, Clear bilaterally - Abdomen Abdomen: Non tender, Non distended - Derm Derm: Normal color, Warm and dry - Neuro Neuro: Alert and oriented X 3, artificial breast fabricator 2-12 intact, No motor deficit, No sensory deficit, Normal speech Eye Opening: Spontaneous Motor: Obeys Commands Verbal: Oriented GCS Score: 15 - Psych Psych: Normal mood, Normal affect Results - Vitals Vitals: Vital Signs - 24 hr 10/12/23 10/13/23 10/13/23 23:15 00:00 00:28 Temperature 36.8 C Heart Rate 75 65 64 Respiratory 16 16 16 Rate Blood Pressure 199/107 H 207/118 H 158/105 H O2 Saturation 97 97 13 L 10/13/23 00:30 Temperature Heart Rate 61 Respiratory 24 Rate Blood Pressure 166/97 H O2 Saturation 96 Oxygen O2 Source [] Room air O2 Source [] Room air O2 Source Room air - EKG (time done) 2326 EKG releavant findings:: EKG personally interpreted by author of this note. Relevant findings are: Rate: Rate (enter#) (61) Rhythm: NSR [place]: Normal Intervals: Normal NC QRS: Normal Ischemia: Normal ST segments PD Medical Decision Making - ED course ED course: 68yM with pmh htn p/w elevated BP and palpitations. BP came down on its own without intervention here in the ED. CBC, abdominal panel, trop, ekg, cxr ordered and noncontributory. plan to f/u outpatient with Dr. Sepulveda. Return precautions given. Departure - Departure Clinical Impression: Palpitations, Hypertension Condition: Stable Instructions: Hypertension Control Comments: You were seen in the emergency department for high blood pressure. You can follow up with Dr. Sepulveda to have your blood pressure rechecked and add another blood pressure medicine as needed. Please follow-up with your primary care provider and return to the emergency department if you have any new or worsening symptoms or other concerns. Forms: PCP List
[2023-10-13 00:33] LABS: BASOPHILS % (AUTO) 0.5 %; EOSINOPHILS # (AUTO) 0.3 10^3/uL (0.0-0.7); EOSINOPHILS % (AUTO) 4.5 %; HCT - HEMATOCRIT 43.8 % (42.0-52.0); HGB - HEMOGLOBIN 14.7 g/dL (14.0-18.0); LYMPHOCYTES # (AUTO) 1.6 10^3/uL (1.5-3.5); LYMPHOCYTES % (AUTO) 24.2 %; MEAN CORPUSCULAR HEMOGLOBIN 31.5 pg (27.0-31.0); MEAN CORPUSCULAR HGB CONC 33.6 g/dL (32.0-36.0); MEAN PLATELET VOLUME 10.1 fL (7.4-11.4); MONOCYTES # (AUTO) 0.5 10^3/uL (0.0-1.0); MONOCYTES % (AUTO) 7.5 %; NEUTROPHILS # (AUTO) 4.2 10^3/uL (1.5-6.6); NEUTROPHILS % (AUTO) 63.1 %; PLT - PLATELET COUNT 244 10^3/uL (130-450); RED BLOOD COUNT 4.66 10^6/uL (4.70-6.10); RED CELL DISTRIBUTION WIDTH 14.3 % (12.0-15.0); WHITE BLOOD COUNT 6.6 x10^3/uL (4.8-10.8)
[2023-10-13 00:49] LABS: TROPONIN I HIGH SENSITIVITY 7.4 ng/L (2.3-19.7)
[2023-10-13 01:06] LABS: ALBUMIN 4.1 g/dL (3.2-5.5); ALBUMIN/GLOBULIN RATIO 1.6 (1.0-2.2); BILIRUBIN,TOTAL 0.5 mg/dL (0.2-1.0); CALCIUM 8.8 mg/dL (8.5-10.3); POTASSIUM 3.5 mmol/L (3.5-4.5); TOTAL PROTEIN 6.6 g/dL (6.4-8.9)
--- NOTE | 2023-10-13 01:28 | XRAY Report ---
PROCEDURE: Chest 1V INDICATIONS: Chest pain TECHNIQUE: One view of the chest was acquired. COMPARISON: None. FINDINGS: Surgical changes and devices: None. Lungs and pleura: No pleural effusions or pneumothorax. Lungs are clear. Mediastinum: Mediastinal contours appear normal. Heart size is normal. Bones and chest wall: No suspicious bony lesions. Overlying soft tissues appear unremarkable. IMPRESSION: No acute cardiopulmonary process. Reviewed by: Dodie Valdivia MD on 10/13/2023 1:27 AM [facility] Approved by: Dodie Valdivia MD on 10/13/2023 1:27 AM [facility] Station ID: [id number]
[2023-10-13 01:53] VITALS: BP 180/102; O2SAT 94
== END 2023-10-13 01:50 | disposition home or self-care (01) ==
LOC: ED 23:06
DX: I10 Essential (primary) hypertension (principal); R00.2 Palpitations
CPT/HCPCS: 36415; 80053; 83690; 84484; 85025; 93005; 99283; 99284

== ENCOUNTER 2023-12-15 12:49 | Outpatient (CLI) | payer MEDICARE, OTHER | END 2023-12-15 12:50 | disposition home or self-care (01) | LOC: DI 12:49 | PROVIDERS: ATTEND Family Medicine | DX: I11.9 Hypertensive heart disease without heart failure (principal); I77.810 Thoracic aortic ectasia | CPT/HCPCS: 93307 ==

== ENCOUNTER 2024-02-05 07:50 | Outpatient (CLI) | payer MEDICARE, OTHER ==
[2024-02-05 12:28] LABS: ESTIMATED AVERAGE GLUCOSE 117 mg/dL (70-100); HEMOGLOBIN A1c% 5.7 % (4.27-6.07)
[2024-02-05 12:56] LABS: CALCIUM 9.2 mg/dL (8.5-10.3); CREATININE 1.1 mg/dL (0.6-1.3); POTASSIUM 3.8 mmol/L (3.5-4.5)
== END 2024-02-05 07:51 | disposition home or self-care (01) ==
LOC: LAB.N 07:50
PROVIDERS: ATTEND Family Medicine
DX: I10 Essential (primary) hypertension (principal); R73.03 Prediabetes; C18.7 Malignant neoplasm of sigmoid colon; Z12.5 Encounter for screening for malignant neoplasm of prostate; N40.1 Benign prostatic hyperplasia with lower urinary tract symptoms; N13.8 Other obstructive and reflux uropathy
CPT/HCPCS: 36415; 80048; 83036; G0103; 84153

== ENCOUNTER 2024-04-01 12:13 | Outpatient (CLI) | payer MEDICARE, OTHER | END 2024-04-01 12:14 | disposition home or self-care (01) | LOC: LAB.N 12:13 | PROVIDERS: ATTEND Surgery | DX: C18.7 Malignant neoplasm of sigmoid colon (principal) | CPT/HCPCS: 36415; 82378 ==

== ENCOUNTER 2024-04-06 07:30 | Outpatient (CLI) | payer MEDICARE, OTHER | END 2024-04-06 07:45 | disposition home or self-care (01) | LOC: LAB.N 07:30 | PROVIDERS: ATTEND Physician Assistant | DX: N30.00 Acute cystitis without hematuria (principal) | CPT/HCPCS: 87086 ==